=== PATIENT | female | born 1945 | race Caucasian/White ===

== ENCOUNTER → 2017-12-28 07:34 | Outpatient (CLI) | payer MEDICARE, OTHER, SELFPAY ==
--- NOTE | 2017-12-28 07:37 | BI_ITS ---
MAMMOGRAPHY - BILATERAL DIAGNOSTIC REASON FOR EXAM: Female, 72 years old. Palpable abnormality in the deep mid medial portion of the left breast. PERTINENT HISTORY: Sisters with breast cancer. TECHNIQUE: Digital bilateral breast kaylin (3D mammographic acquisition) in the CC and MLO projections. 2-D mediolateral oblique (MLO) and craniocaudad (CC) views of both breasts were obtained. CAD: Full Field Digital Mammography with Computer Added Detection was performed. COMPARISON: Comparison is made with prior study dated March 17, 2014. FINDINGS: Breast Composition: The breasts are heterogeneously dense, which may obscure small masses. There are no dominant masses or suspicious calcifications. No other significant abnormalities are identified. There has been no significant change since the prior study. BI/DIAG MAMM W/CAD, BILAT IMPRESSION: Stable bilateral diagnostic mammogram. With the patient's history of a palpable abnormality in the left breast, correlation with ultrasound is recommended. ASSESSMENT CATEGORY: BIRADS Category 0: Incomplete. Need additional imaging evaluation. A letter regarding these results will be sent to the patient by the facility within 30 days. Approximately 10% of breast cancers are not detected by mammography. A normal mammogram should not delay biopsy of a clinically suspicious abnormality. Electronically Signed: Damir Contreras MD at 9:25 EDT Tel [phone], Service support ,
--- NOTE | 2017-12-28 07:38 | US_ITS ---
STUDY: ULTRASOUND BREAST - LEFT REASON FOR EXAM: Female, 72 years old. Palpable lump left breast. TECHNIQUE: Axial and longitudinal images of the LEFT breast were performed with a high resolution ultrasound transducer. COMPARISON: Comparison is made with prior mammogram done earlier today. FINDINGS: LEFT Breast: The upper medial portion of the left breast was examined by ultrasound. There is homogeneous fiber glandular tissue. No solid or cystic mass lesion is seen. US/Breast Limited Unilateral IMPRESSION: Unremarkable sonographic examination of the upper inner quadrant of the left breast. ASSESSMENT CATEGORY: BIRADS Category 1: Negative. A letter regarding these results will be sent to the patient by the facility within 30 days. Electronically Signed: Damir Contreras MD at 9:30 EDT Tel [phone], Service support ,
== END ==
PROVIDERS: Family Provider Internal Medicine; PCP Internal Medicine; Visit Provider Internal Medicine
DX: N63.22 Unspecified lump in the left breast, upper inner quadrant (principal)
CPT/HCPCS: 76642; 77062; 77066; G0279

== ENCOUNTER → 2019-03-22 07:06 | Outpatient (CLI) | payer MEDICARE, OTHER, SELFPAY ==
--- NOTE | 2019-03-22 06:55 | BI_ITS ---
MAMMOGRAPHY - BILATERAL SCREENING REASON FOR EXAM: Female, 73 years old. Routine annual screening examination. PERTINENT HISTORY: Sisters with breast cancer. TECHNIQUE: Digital bilateral breast harinder (3D mammographic acquisition) in the CC and MLO projections. 2-D mediolateral oblique (MLO) and craniocaudad (CC) views of both breasts were obtained. CAD: Full Field Digital Mammography with Computer Added Detection was performed. COMPARISON: Comparison is made with prior study dated December 28, 2017 and March 17, 2014. FINDINGS: Breast Composition: The breasts are heterogeneously dense, which may obscure small masses. There are no dominant masses or suspicious calcifications. There is a 9.4 mm x 5.5 mm well-defined nodule in the lateral retroareolar region of the left breast. This most likely represents a small lymph node. Correlation with ultrasound is recommended. No other significant abnormalities are identified. BI/SCREEN MAMM (CAD) W/HARINDER BILAT IMPRESSION: 9.4 mm x 5.5 mm well-defined nodule in the lateral retroareolar region of left breast as described. Correlation with ultrasound is recommended. ASSESSMENT CATEGORY: BIRADS Category 0: Incomplete. Need additional imaging evaluation. A letter regarding these results will be sent to the patient by the facility within 30 days. Approximately 10% of breast cancers are not detected by mammography. A normal mammogram should not delay biopsy of a clinically suspicious abnormality. [id number] Electronically Signed: Damir Contreras, at 9:16 EDT , Service support ,
== END ==
PROVIDERS: Family Provider Internal Medicine; PCP Internal Medicine; Referring Provider Internal Medicine; Visit Provider Internal Medicine
DX: Z12.31 Encounter for screening mammogram for malignant neoplasm of breast (principal); Z80.3 Family history of malignant neoplasm of breast
CPT/HCPCS: 77063; 77067

== ENCOUNTER → 2019-04-12 08:01 | Outpatient (CLI) | payer MEDICARE, OTHER, SELFPAY ==
--- NOTE | 2019-04-12 08:05 | US_ITS ---
STUDY: ULTRASOUND BREAST - LEFT REASON FOR EXAM: Female, 73 years old. Abnormal screening mammogram. TECHNIQUE: Axial and longitudinal images of the LEFT breast were performed with a high resolution ultrasound transducer. COMPARISON: Comparison is made with prior mammogram dated March 22, 2019 and prior ultrasound the left breast dated December 28, 2017. FINDINGS: LEFT Breast: The mammographic abnormality corresponds to an 8 mm x 11 mm x 4 mm hypoechoic nodule with peripheral rim of increased echotexture suggestive of a possible fat. A biopsy is recommended for further evaluation. This is at the 3:00 position breast at 2 cm from the nipple. There is also evidence of dilated retroareolar ducts. US/Breast Limited Unilateral IMPRESSION: Heterogeneous nodular density measuring 8 mm x 11 mm x 4 mm at the 3:00 position of the breast at 2 cm from the nipple. A biopsy recommended for further evaluation. ASSESSMENT CATEGORY: BIRADS Category 4: Suspicious - Biopsy Should Be Considered. A letter regarding these results will be sent to the patient by the facility within 30 days. Electronically Signed: Damir Contreras, at 11:20 EDT , Service support ,
== END ==
PROVIDERS: Family Provider Internal Medicine; PCP Internal Medicine; Referring Provider Internal Medicine; Visit Provider Internal Medicine
DX: R92.2 Inconclusive mammogram (principal)
CPT/HCPCS: 76642

== ENCOUNTER → 2019-04-25 09:51 | Outpatient (CLI) | payer MEDICARE, OTHER, SELFPAY ==
[2019-04-25 07:44] VITALS: BMI 27.5
--- NOTE | 2019-04-25 07:50 | BRBX_PTH ---
PATIENT: FREDDIE STARK LOC: [facility] U#:[id number] AGE/SX: 80/F ROOM: RE04/25/[address]: Dr. Timothy Garcia MD : 1945 BED: DIS: SPEC #: [id number] RECD: 04/25/19 09:28 STATUS: MAR OMAR #: [id number] JEAN MARIE: 04/25/19 07:[address]: Timothy Garcia DEPT: SURGICAL PATHOLOGY RECD BY: Raoul Richards ENTERED: 04/25/19 10:44 SP TYPE: BREAST BX OTHR DR: Dr. Netta Araujo MD Tissues: Left breast, NOS Procedures: Surgery Specimen Level IV HEADER OPERATION: Left breast biopsy PRE-OP DIAGNOSIS: Left breast abnormal ultrasound TISSUE SUBMITTED: Left breast tissue FIXATION TIME: 11.5 hours MICROSCOPIC DIAGNOSIS Left breast tissue, core biopsy: Fragments of benign breast tissue with focal dense fibrosis and lobular involution. Negative for atypia or malignancy. See comment. CODY:jericho 04/26/19 COMMENT Correlation with clinical, radiologic findings and appropriate follow up are necessary. MICROSCOPIC DESCRIPTION Slides are reviewed. GROSS DESCRIPTION Received in fixative is one container labeled with the patient's name and designated left breast. The specimen consists of multiple fragments of phipps-yellow fibroadipose tissue that in aggregate measure 1.5 x 0.3 x 0.1 cm. The entire specimen is submitted in one cassette. / CODY:jericho 04/25/19 TC:5 CPT: 56291
== END ==
PROVIDERS: Family Provider Internal Medicine; PCP Internal Medicine; Referring Provider Surgery; Visit Provider Surgery
DX: N60.32 Fibrosclerosis of left breast (principal)
CPT/HCPCS: 88305

== ENCOUNTER → 2019-09-13 07:36 | Outpatient (CLI) | payer MEDICARE, OTHER, SELFPAY ==
[2019-04-25 07:44] VITALS: BMI 27.5
--- NOTE | 2019-09-13 07:45 | BI_ITS ---
MAMMOGRAPHY - UNILATERAL DIAGNOSTIC: LEFT BREAST REASON FOR EXAM: Female, 74 years old. Six-month follow-up of an ultrasound guided biopsy of the left breast. PERTINENT HISTORY: Sisters with breast cancer. TECHNIQUE: Digital unilateral breast kaylin (3D mammographic acquisition) in the CC and MLO projections. 2-D mediolateral oblique (MLO) and craniocaudad (CC) views of both breasts were obtained. CAD: Full Field Digital Mammography with Computer Added Detection was performed. COMPARISON: Comparison is made with prior examination dated March 22, 2019. FINDINGS: Breast Composition: The breasts are heterogeneously dense, which may obscure small masses. There are no dominant masses or suspicious calcifications. A tissue clip marker is seen within a 9 mm well-defined nodule in the lateral retroareolar region of the left No other significant abnormalities are identified. There has been no significant change since the prior study. BI/DIAG MAMM W/CAD, UNILAT IMPRESSION: Stable unilateral diagnostic mammogram. One year follow-up mammogram recommended. (A) ASSESSMENT CATEGORY: BIRADS Category 2: Benign. A letter regarding these results will be sent to the patient by the facility within 30 days. Approximately 10% of breast cancers are not detected by mammography. A normal mammogram should not delay biopsy of a clinically suspicious abnormality. Electronically Signed: Damir Contreras, at 10:09 EST , Service support ,
== END ==
PROVIDERS: PCP Internal Medicine; Referring Provider Surgery; Visit Provider Surgery
DX: R92.8 Other abnormal and inconclusive findings on diagnostic imaging of breast (principal)
CPT/HCPCS: 77061; 77065; G0279

== ENCOUNTER → 2023-08-07 | Outpatient (CLI) | payer MEDICARE, OTHER, SELFPAY ==
--- NOTE | 2023-08-07 07:40 | BI_ITS ---
MAMMOGRAPHY - BILATERAL SCREENING REASON FOR EXAM: Female, 78 years old. Routine annual screening examination. PERTINENT HISTORY: Sisters with breast cancer. History of remote right excisional breast biopsy and left ultrasound-guided breast biopsy. TECHNIQUE: Digital bilateral breast harinder (3D mammographic acquisition) in the CC and MLO projections. 2-D mediolateral oblique (MLO) and craniocaudad (CC) views of both breasts were obtained. CAD: Full Field Digital Mammography with Computer Added Detection was performed. COMPARISON: Comparison is made with prior study dated March 22, 2019. FINDINGS: Breast Composition: The breasts are heterogeneously dense, which may obscure small masses. New microcalcifications are seen in the upper outer quadrant of the left breast. Several clusters are seen. Questionable 1.6 cm x 1 cm nodule in the upper lateral deep portion of the left breast. Biopsy recommended. No other significant abnormalities are identified. BI/SCRN MAMM (CAD)W/HARINDER BILAT IMPRESSION: New clusters of microcalcifications in the upper lateral aspect of the left breast with questionable 1.6 cm x 1 cm nodule as described. Biopsy recommended. ASSESSMENT CATEGORY: BIRADS Category 5: Highly Suggestive of Malignancy - Appropriate Action Should Be Taken. A letter regarding these results will be sent to the patient by the facility within 30 days. Approximately 10% of breast cancers are not detected by mammography. A normal mammogram should not delay biopsy of a clinically suspicious abnormality. [id number] Electronically Signed: Damir Contreras MD at 9:04 EST ,
--- OUTSIDE RECORDS SUMMARY | 2023-08-07 07:58 | XMS RPT_ITS | CCD ---
Author Name Unknown Address [address] [place] [address] Organization [facility] Care Team Providers Care Multiskill Operator Name Role Phone Netta Araujo Unavailable TOPHER Paniagua Unavailable Unavailable Unavailable Unavailable Timothy Garcia Unavailable Netta Araujo MD Unavailable Timothy Garcia MD Unavailable TOPHER Paniagua LPN Unavailable Unavailable Unavailable Unavailable Netta Araujo MD Unavailable Gary Valera Unavailable Medications Completed/Discontinued Medications Medication Drug Class(es) Dates Sig (Normalized) Sig (Original) amoxicillin 875 mg / clavulanate 125 mg oral tablet (20 sources) Penicillin-class Antibacterial Start: 11-01-2007 End: 02-13-2008 take 1 tablet by mouth twice daily AUGMENTIN, 875-125MG (Oral Tablet) 1 Tablet bid for 14 days Quantity: 28 {Tablet} Refills: 0 Ordered: 01-Nov-2007 Paradisepedro Manuela Start : 01-Nov-2007 End : 13-Feb-2008 Inactive aspirin 81 mg chewable tablet (20 sources) Platelet Aggregation Inhibitor, Nonsteroidal Anti-inflammatory Drug Start: 11-02-2017 End: 04-14-2022 take 1 tablet by mouth in the morning Aspirin 81 81 MG Oral Tablet Chewable 1 (one) Tablet Tablet in am for 0 days Quantity: 30 {Tablet} Refills: 0 Ordered: 14-Apr-2022 Lucina Harris LPN Start : 02-Nov-2017 End : 14-Apr-2022 Inactive cholecalciferol 0.05 mg chewable tablet (20 sources) Vitamin D Start: 06-09-2016 take 1 tablet by mouth in the morning Vitamin D3 2000 UNIT Oral Tablet Chewable 1 (one) Tablet Chewable Tablet Chewable in am for 0 days Quantity: 30 {Tablet} Refills: 0 Ordered: 16-Feb-2017 Lindsey Lovett LPN Start : 09-Jun-2016 Active Comments: will get in her vitamins get. Problems Active Problems Problem Classification Problem Date Documented Da te Episodic/Chronic Blindness and vision defects (14 sources) Eye / vision finding; Translations: [Change in vision] 04-14-2022 Episodic Past or Other Problems Problem Classification Problem Date Documented Date Episodic/Chronic Coronary atherosclerosis and other heart disease (20 sources) Coronary atherosclerosis and other heart disease Nonmalignant breast conditions (9 sources) Breast signs and symptoms; Translations: [Other signs and symptoms in breast] Resolved: 05-18-2012 05-29-2015 Results Test Name Value Interpretation Reference Range Facil ity Vital Signs Date Time Vital Sign Value Performing Clinician Facility 04-14-2022 07:43-0400 Body height 161.29 cm Lucina Harris LPN [facility] Work Phone: 04-14-2022 07:43-0400 Body mass index (BMI) [Ratio] 27.56 kg/m2 Lucina Harris LPN [facility] Work Phone: 04-14-2022 07:43-0400 Body surface area Derived from formula 1.76 m2 Lucina Harris LPN [facility] Work Phone: 04-14-2022 07:43-0400 Body temperature 97.4 [degF] Lucina Harris LPN [facility] Work Phone: 04-14-2022 07:43-0400 Body weight 71.69 kg Lucina Harris LPN [facility]; [facility] Work Phone: 04-14-2022 07:43-0400 Diastolic blood pressure 74 mm[Hg] [facility] Work Phone: Encounters Encounter Date Encounter Type Care Provider Facility Start: 04-14-2022 End: 04-14-2022 Patient encounter procedure Netta Araujo MD Work Phone: [facility] Start: 04-14-2022 End: 04-14-2022 Patient encounter status Netta Araujo MD Work Phone: [facility] Work Phone: Procedures Date Procedure Procedure Detail Performing Clinician Start: 09-13-2019 End: 09-13-2019 DIAG MAMM W/CAD, UNILAT Comments: See Note; NOTES: [facility] Imaging Services [address] [place] [address] DIAG MAMM W/CAD, UNILAT MR#: [id number] Acct: [id number] Name: MANUELA STARK Rep #: [id number] : 1945 F 74 From: Damir Contreras MD PCP: Netta Araujo MD Status: REG CLI Study: DIAG MAMM W/CAD, UNILAT Date of Exam: 09/13/19 Exam# [id number] Ordering Dr: Timothy Garcia MD MAMMOGRAPHY - UNILATERAL DIAGNOSTIC: LEFT BREAST REASON FOR EXAM: Female, 74 years old. Six-month follow-up of an ultrasound guided biopsy of the left breast. PERTINENT HISTORY: Sisters with breast cancer. TECHNIQUE: Digital unilateral breast harinder (3D mammographic acquisition) in the CC and MLO projections. 2-D mediolateral oblique (MLO) and craniocaudad (CC) views of both breasts were obtained. CAD: Full Field Digital Mammography with Computer Added Detection was performed. COMPARISON: Comparison is made with prior examination dated March 22, 2019. FINDINGS: Breast Composition: The breasts are heterogeneously dense, which may obscure small masses. There are no dominant masses or suspicious calcifications. A tissue clip marker is seen within a 9 mm well-defined nodule in the lateral retroareolar region of the left No other significant abnormalities are identified. There has been no significant change since the prior study. BI/DIAG MAMM W/CAD, UNILAT IMPRESSION: Stable unilateral diagnostic mammogram. One year follow-up mammogram recommended. (A) ASSESSMENT CATEGORY: BIRADS Category 2: Benign. A letter regarding these results will be sent to the patient by the facility within 30 days. Approximately 10% of breast cancers are not detected by mammography. A normal mammogram should not delay biopsy of a clinically suspicious abnormality. Electronically Signed: Damir Ben, at 10:09 EST , Service support , CC: eNtta Araujo MD; Timothy Garcia MD Mushroom Laborer: Signed Netta Araujo MD Work Phone: Start: 04-25-2019 End: 04-25-2019 Surgery Visit Report Comments: See Note; NOTES: [facility] [address] [place] [address]. [address] [place] [address] OFFICE VISIT Date of Service: 04/25/19 MR#: [id number] Acct: [id number] Name: MANUELA STARK Rep #: [id number] : 1945 Provider: Timothy Garcia MD Age/Sex: 73/F Location: [facility] Status: Signed Intake Vital Signs04/25/19 Height 5 ft 3.5 in 04/25/19 Weight: 158 lb 1 oz 04/25/19 Body Mass Index (BMI) 27.5 04/25/19 Blood Pressure 154/68 H Intake Visit Reasons: Abnormal Mammo Of Left Breast US 04/12 [facility] Chief Complaint: abn breast US left Regional [employer] Required: No Is patient in pain?: No Allergies No Known Allergies Allergy (Verified 04/25/19 07:45) Medications cholecalciferol (vitamin D3) 5,000 unit capsule 5,000 unit PO DAILY 04/25/19 [History Confirmed 04/25/19] losartan 100 mg tablet PO #90 tab 04/25/19 [History Confirmed 04/25/19] multivitamin,px-rydb-zooc rals tablet 1 tab PO DAILY 04/25/19 [History Confirmed 04/25/19] Is last menstrual period known: No Post menopausal: Yes Patient : No [facility] Medical History (Updated 04/25/19 @ 08:12 by Timothy Garcia MD) Abnormal mammogram of left breast (Acute) Hemorrhoid (Acute) HTN (hypertension) (Chronic) Surgical History (Updated 04/25/19 @ 07:42 by Karuna Winters) History of colonoscopy (Acute) History of lumpectomy of right breast (Acute) Family History (Updated 04/25/19 @ 07:44 by Karuna Winters) Brother Diabetes Colon cancer Sister Breast cancer Cancer uterine Sister Breast cancer Mother CVA (cerebral vascular accident) Father Heart disease Social History (Updated 04/25/19 @ 14:51 by Timothy Garcia MD) Smoking Status: Never smoker HPI HPI HPI: MANUELA STARK, is a 73 F who presents to the office today for surgical consultation regarding an abnormal left breast mammogram and ultrasound. The patient is kindly referred by Dr. Netta Araujo and a written compromise surgical consult recommendations will be returned to her. 73-year-old female. G0. She has 2 sisters had breast cancer. She did have a previous hysterectomy and she was on estrogen replacement therapy for 5 years. She has had a very remote excisional right breast biopsy. She has had a previous breast cyst aspiration. She has not had any personal history of breast cancer. There is no nipple discharge or bleeding. She notes that her breasts are rather dense on exam particular the left. She has not had any change in her self breast exam. Her general health has remained good. 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 [facility] Imaging Services [address] [place] [address] SCREEN MAMM (CAD) W/HARINDER BILAT MR#: [id number]:[id number] Name: MANUELA STARK [facility] #:[id number] : 1945 73 From: Damir Contreras MD PCP:Netta Araujo MD Status:REG CLI Study:SCREEN MAMM (CAD) W/HARINDER BILAT Date of Exam:03/22/19 Exam#[id number] Ordering Dr: Netta Araujo MD MAMMOGRAPHY - BILATERAL SCREENING REASON FOR EXAM: Female, 73 years old. Routine annual screening examination. PERTINENT HISTORY: Sisters with breast cancer. TECHNIQUE: Digital bilateral breast harinder (3D mammographic acquisition) in the CC and MLO projections. 2-D mediolateral oblique (MLO) and craniocaudad (CC) views of both breasts were obtained. CAD: Full Field Digital Mammography with Computer Added Detection was performed. COMPARISON: Comparison is made with prior study dated December 28, 2017 and March 17, 2014. FINDINGS: Breast Composition: The breasts are heterogeneously dense, which may obscure small masses. There are no dominant masses or suspicious calcifications. There is a 9.4 mm x 5.5 mm well-defined nodule in the lateral retroareolar region of the left breast. This most likely represents a small lymph node. Correlation with ultrasound is recommended. No other significant abnormalities are identified. BI/SCREEN MAMM (CAD) W/HARINDER BILAT IMPRESSION: 9.4 mm x 5.5 mm well-defined nodule in the lateral retroareolar region of left breast as described. Correlation with ultrasound is recommended. ASSESSMENT CATEGORY: BIRADS Category 0: Incomplete. Need additional imaging evaluation. A letter regarding these results will be sent to the patient by the facility within 30 days. Approximately 10% of breast cancers are not detected by mammography. A normal mammogram should not delay biopsy of a clinically suspicious abnormality. [id number] Electronically Signed: Damir Contreras, at 9:16 EDT , Service support , [facility] Imaging Services [address] [place] [address] Breast Limited Unilateral MR#: [id number] Name: MANUELA STARK [facility] #:[id number] : 1945 73 From: Damir Contreras MD PCP:Netta Araujo MD Status:REG CLI Study:Breast Limited Unilateral Date of Exam:04/12/19 Exam#[id number] Ordering Dr: Netta Araujo MD STUDY: ULTRASOUND BREAST - LEFT REASON FOR EXAM: Female, 73 years old. Abnormal screening mammogram. TECHNIQUE: Axial and longitudinal images of the LEFT breast were performed with a high resolution ultrasound transducer. COMPARISON: Comparison is made with prior mammogram dated March 22, 2019 and prior ultrasound the left breast dated December 28, 2017. FINDINGS: LEFT Breast: The mammographic abnormality corresponds to an 8 mm x 11 mm x 4 mm hypoechoic nodule with peripheral rim of increased echotexture suggestive of a possible fat. A biopsy is recommended for further evaluation. This is at the 3:00 position breast at 2 cm from the nipple. There is also evidence of dilated retroareolar ducts. US/Breast Limited Unilateral IMPRESSION: Heterogeneous nodular density measuring 8 mm x 11 mm x 4 mm at the 3:00 position of the breast at 2 cm from the nipple. A biopsy recommended for further evaluation. ASSESSMENT CATEGORY: BIRADS Category 4: Suspicious - Biopsy Should Be Considered. A letter regarding these results will be sent to the patient by the facility within 30 days. Electronically Signed: Damir Contreras, at 11:20 EDT , Service support , HPI HPI HPI: MANUELA STARK, is a 73 F who presents to the office today for ROS General General: Yes weight change; no appetite, fatigue, colon cancer, breast cancer or weakness HEENT HEENT: No difficulty swallowing, eye injury, eye surgery, swollen glands or hoarseness Endo Endocrine: No thyroid disease, diabetes mellitus, thyroid cancer, Hair loss, heat intolerance or cold intolerance Cardio Cardiovascular: Yes high blood pressure; no murmur, pacemaker, heart disease, atrial fibrillation, heart attack, heart stent, palpitations, shortness of breat with exertion or chest pain Resp Respiratory: No shortness of breath, No sleep apnea, No cough, No COPD, No asthma, No emphysema, No wheezing Gastro Gastrointestinal: No abdominal pain, No nausea or vomiting, No diarrhea, No constipation, No blood in stool, No acid reflux, Yes hemorrhoids, No ulcers, No gallbladder problem, No black,tarry stools Bobby Hematologic: No blood thinners, No blood disorders, No bleeding, No anemia, No blood clots Neuro Neurologic: No weakness Exam Chest Other: Right breast: No focal mass, no nipple discharge, no axillary or clavicular adenopathy Left breast: Diffuse rubbery fibrous change upper outer quadrant left breast 2 o'clock position mobile, nontender, no distortion. No retraction. No axillary or clavicular adenopathy Resp Effort AND Inspection: normal respiratory effort Auscultation: clear to auscultation bilaterally Cardio Heart Sounds: no murmurs Office Procedures Biopsy Provider Documentation Ultrasound-guided needle core biopsy left breast 3:00 lesion Timeout and informed consent was obtained. 73-year-old female was taken to this procedure room. She is placed in a modified right lateral decubitus position. The outer left breast was sterilely prepped draped in routine fashion with Betadine. Under ultrasound guidance the lesion in question seen on preintervention imaging was identified. 1% lidocaine mixed 50-50 with 0.5% Marcaine was used as a local anesthetic. A total of 10 cc was used. A small stab incision was created. A 14-gauge Monopty needle was advanced to prefire depth. Pre-and post fire films were obtained. A total of 5 cores were obtained. A marking clip was left in position. Pressure was held for hemostasis. Steri-Strip Telfa OpSite dressing applied. The specimens were immediately transported to formalin. She was given activity wound care instructions. The area seemed to diminish slightly in size subsequent to the biopsies. She will be notified of pathology results as they become available. My initial suspicion is of a lower risk lesion. Timothy Garcia M.D., F.A.C.S. Alert Darline Yes Biopsy Breast Biopsy: 70822 US Guidance Procedure Time Out Time Out Informed consent given: Yes Consent signed: Yes Time out checklist: patient, procedure, site marked/identified, positioning of patient, supplies available, allergies confirmed, team agrees on procedure Time out staff in room: Yes Time out verified: Yes Time out date: 04/25/19 Time out time: 07:53 Assessment AND Plan Problems 1. Abnormal mammogram of left breast R92.8 Plan Abnormal left breast mammogram. Successful ultrasound-guided needle core biopsy left breast 3 o'clock position. Final pathology pending. I appreciate the opportunity of assisting with her surgical care. CC: Dr. Netta Garcia M.D., F.A.C.S. Orders Orders: Coding Level of Care Code Attention Darline Diagnoses Abnormal mammogram of left breast R92.8 Additional Codes Biopsy - Breast Biopsy: 08454 US Guidance (64806) 04/25/19 1451 <Electronically signed by Timothy Garcia MD> Date Timothy Garcia MD Cosigner Signature: Date (if applicable) CC: Netta Araujo MD Work Phone: Start: 04-12-2019 End: 04-12-2019 Breast Limited Unilateral Comments: See Note; NOTES: [facility] Imaging Services [address] [place] [address] Breast Limited Unilateral MR#: [id number] Acct: [id number] Name: MANUELA STARK Rep #: [id number] : 1945 F 73 From: Damir Contreras MD PCP: Netta Araujo MD Status: REG CLI Study: Breast Limited Unilateral Date of Exam: 04/12/19 Exam# [id number] Ordering Dr: Netta Araujo MD STUDY: ULTRASOUND BREAST - LEFT REASON FOR EXAM: Female, 73 years old. Abnormal screening mammogram. TECHNIQUE: Axial and longitudinal images of the LEFT breast were performed with a high resolution ultrasound transducer. COMPARISON: Comparison is made with prior mammogram dated March 22, 2019 and prior ultrasound the left breast dated December 28, 2017. FINDINGS: LEFT Breast: The mammographic abnormality corresponds to an 8 mm x 11 mm x 4 mm hypoechoic nodule with peripheral rim of increased echotexture suggestive of a possible fat. A biopsy is recommended for further evaluation. This is at the 3:00 position breast at 2 cm from the nipple. There is also evidence of dilated retroareolar ducts. US/Breast Limited Unilateral IMPRESSION: Heterogeneous nodular density measuring 8 mm x 11 mm x 4 mm at the 3:00 position of the breast at 2 cm from the nipple. A biopsy recommended for further evaluation. ASSESSMENT CATEGORY: BIRADS Category 4: Suspicious - Biopsy Should Be Considered. A letter regarding these results will be sent to the patient by the facility within 30 days. Electronically Signed: Damir Contreras, at 11:20 EDT , Service support , CC: Netta Araujo MD Mushroom Laborer: Signed Netta Araujo Work Phone: Start: 03-22-2019 End: 03-22-2019 SCREEN MAMM (CAD) W/HARINDER BILAT Comments: See Note; NOTES: [facility] Imaging Services [address] [place] [address] SCREEN MAMM (CAD) W/HARINDER BILAT MR#: [id number] Acct: [id number] Name: MANUELA STARK Rep #: [id number] : 1945 F 73 From: Damir Contreras MD PCP: Netta Araujo MD Status: REG CLI Study: SCREEN MAMM (CAD) W/HARINDER BILAT Date of Exam: 03/22/19 Exam# [id number] Ordering Dr: Netta Araujo MD MAMMOGRAPHY - BILATERAL SCREENING REASON FOR EXAM: Female, 73 years old. Routine annual screening examination. PERTINENT HISTORY: Sisters with breast cancer. TECHNIQUE: Digital bilateral breast harinder (3D mammographic acquisition) in the CC and MLO projections. 2-D mediolateral oblique (MLO) and craniocaudad (CC) views of both breasts were obtained. CAD: Full Field Digital Mammography with Computer Added Detection was performed. COMPARISON: Comparison is made with prior study dated December 28, 2017 and March 17, 2014. FINDINGS: Breast Composition: The breasts are heterogeneously dense, which may obscure small masses. There are no dominant masses or suspicious calcifications. There is a 9.4 mm x 5.5 mm well-defined nodule in the lateral retroareolar region of the left breast. This most likely represents a small lymph node. Correlation with ultrasound is recommended. No other significant abnormalities are identified. BI/SCREEN MAMM (CAD) W/HARINDER BILAT IMPRESSION: 9.4 mm x 5.5 mm well-defined nodule in the lateral retroareolar region of left breast as described. Correlation with ultrasound is recommended. ASSESSMENT CATEGORY: BIRADS Category 0: Incomplete. Need additional imaging evaluation. A letter regarding these results will be sent to the patient by the facility within 30 days. Approximately 10% of breast cancers are not detected by mammography. A normal mammogram should not delay biopsy of a clinically suspicious abnormality. [id number] Electronically Signed: Damir Contreras, at 9:16 EDT , Service support , CC: Netta Araujo MD Mushroom Laborer: Signed Netta Araujo Work Phone: Start: 12-28-2017 End: 12-28-2017 Breast Limited Unilateral Comments: See Note; NOTES: [facility] Imaging Services [address] [place] [address] Breast Limited Unilateral MR#: [id number] Acct: [id number] Name: MANUELA STARK Rep #: [id number] : 1945 F 72 From: Damir Contreras MD PCP: Netta Araujo MD Status: REG CLI Study: Breast Limited Unilateral Date of Exam: 12/28/17 Exam# [id number] Ordering Dr: Netta Araujo MD STUDY: ULTRASOUND BREAST - LEFT REASON FOR EXAM: Female, 72 years old. Palpable lump left breast. TECHNIQUE: Axial and longitudinal images of the LEFT breast were performed with a high resolution ultrasound transducer. COMPARISON: Comparison is made with prior mammogram done earlier today. FINDINGS: LEFT Breast: The upper medial portion of the left breast was examined by ultrasound. There is homogeneous fiber glandular tissue. No solid or cystic mass lesion is seen. US/Breast Limited Unilateral IMPRESSION: Unremarkable sonographic examination of the upper inner quadrant of the left breast. ASSESSMENT CATEGORY: BIRADS Category 1: Negative. A letter regarding these results will be sent to the patient by the facility within 30 days. Electronically Signed: Damir Contreras MD at 9:30 EDT Tel [phone], Service support , CC: Netta Araujo MD Mushroom Laborer: Signed Netta Araujo Work Phone: Start: 12-28-2017 End: 12-28-2017 DIAG MAMM W/CAD, BILAT Comments: See Note; NOTES: [facility] Imaging Services [address] [place] [address] DIAG MAMM W/CAD, BILAT MR#: [id number] Acct: [id number] Name: MANUELA STARK Rep #: [id number] : 1945 F 72 From: Damir Contreras MD PCP: Netta Araujo MD Status: REG CLI Study: DIAG MAMM W/CAD, BILAT Date of Exam: 12/28/17 Exam# [id number] Ordering Dr: Netta Araujo MD MAMMOGRAPHY - BILATERAL DIAGNOSTIC REASON FOR EXAM: Female, 72 years old. Palpable abnormality in the deep mid medial portion of the left breast. PERTINENT HISTORY: Sisters with breast cancer. TECHNIQUE: Digital bilateral breast harinder (3D mammographic acquisition) in the CC and MLO projections. 2-D mediolateral oblique (MLO) and craniocaudad (CC) views of both breasts were obtained. CAD: Full Field Digital Mammography with Computer Added Detection was performed. COMPARISON: Comparison is made with prior study dated March 17, 2014. FINDINGS: Breast Composition: The breasts are heterogeneously dense, which may obscure small masses. There are no dominant masses or suspicious calcifications. No other significant abnormalities are identified. There has been no significant change since the prior study. BI/DIAG MAMM W/CAD, BILAT IMPRESSION: Stable bilateral diagnostic mammogram. With the patient's history of a palpable abnormality in the left breast, correlation with ultrasound is recommended. ASSESSMENT CATEGORY: BIRADS Category 0: Incomplete. Need additional imaging evaluation. A letter regarding these results will be sent to the patient by the facility within 30 days. Approximately 10% of breast cancers are not detected by mammography. A normal mammogram should not delay biopsy of a clinically suspicious abnormality. Electronically Signed: Damir Contreras MD at 9:25 EDT Tel [phone], Service support , CC: Netta Araujo MD Mushroom Laborer: Signed Netta Araujo Work Phone: Start: 06-03-2017 End: 06-03-2017 Carotid Duplex Ultrasound Comments: See Note; NOTES: [facility] Cardiovascular Services [address] [place] [address] Carotid Duplex Ultrasound 06/02/17 0947 MR#: [id number] Acct: [id number] Name: MANUELA STARK Rep #: [id number] : 1945 71 From: Michael Goodman MD Attending Dr: Netta Araujo MD Status: REG CLI Ordering Dr: Netta Araujo MD Date: 06/02/17 Location: [facility] Sex: F C Admitted: Reason For Study: ATHEROSCLEROSIS Rt. Velocities/BP Lt. Velocities/BP Prox CCA 129/20 cm/sec. Prox CCA 130/31 cm/sec. Mid CCA 128/25 cm/sec. Mid CCA 102/33 cm/sec. Dist CCA 83/20 cm/sec. Dist CCA 91/28 cm/sec. Prox ICA 80/20 cm/sec. Prox ICA 86/34 cm/sec. Mid ICA 94/33 cm/sec. Mid ICA 99/41 cm/sec. Dist ICA 86/25 cm/sec. Dist ICA 98/37 cm/sec. Rt. ICA/CCA = .73. Lt. ICA/CCA = .97. Prox ECA 115/15 cm/sec. Prox ECA 133/19 cm/sec. Rt. Vert. 76/15 cm/sec. Lt. Vert. 53/19 cm/sec. Right Extracranial There is intimal thickening but no significant atherosclerotic plaque noted in the right common carotid artery. There is homogeneous, smooth atherosclerotic plaque noted in the right internal carotid artery. There is homogeneous, smooth atherosclerotic plaque noted in the right external carotid artery. Antegrade flow is noted in the right vertebral artery. There is homogeneous, smooth atherosclerotic plaque noted in the right bulb. Left Extracranial There is homogeneous, smooth atherosclerotic plaque noted in the left common carotid artery. There is heterogeneous, irregular atherosclerotic plaque noted in the left internal carotid artery. There is homogeneous, smooth atherosclerotic plaque noted in the left external carotid artery. Antegrade flow is noted in the left vertebral artery. There is heterogeneous, irregular atherosclerotic plaque noted in the left bulb. Procedure Carotid Duplex 85173. Exam performed in department. Interpretation Summary Mild (<50%) stenosis right extracranial internal carotid. Mild (<50%) stenosis left extracranial internal carotid. Flow within the vertebral arteries is antegrade bilaterally. Ordering Physician: Netta Araujo Performed By: Jackie Babin, RDCS, RVT 06/03/171842 Date Michael Goodman MD CC: Netta Araujo MD Date Dictated: 06/02/17 0947 Date Transcribed: 06/03/171842 Mushroom Laborer: Signed Netta Araujo Work Phone: Start: 05-18-2017 End: 05-18-2017 Dexa Bone Density Study (HP) Comments: See Note; NOTES: [facility] Imaging Services [address] [place] [address] Dexa Bone Density Study () MR#: [id number] Acct: [id number] Name: MANUELA STARK Rep #: [id number] : 1945 F 71 From: Damir Contreras MD PCP: Netta Araujo MD Status: REG CLI Study: Dexa Bone Density Study () Date of Exam: 05/18/17 Exam# [id number] Ordering Dr: Netta Araujo MD STUDY: DUAL ENERGY X-RAY ABSORPTIOMETRY / DXA REASON FOR EXAM: Female, 71 years old. The patient is postmenopausal. Loss of height. TECHNIQUE: Bone Mineral Density (BMD) measurements of lumbar spine and bilateral hips were obtained. COMPARISON: None. FINDINGS: Lumbar Spine (L1-L4): g/cm2 (1.266) / T-score (0.5) / Z-score (2.2) Findings are suggestive of normal bone density with a low fracture risk. Increased thoracic kyphosis. Left Femur Total: g/cm2 (0.980) / T-score (-0.2) / Z-score (1.3) Left Femoral Neck: g/cm2 (0.955) / T-score (-0.6) / Z-score (1.2) Right Femur Total: g/cm2 (1.025) / T-score (0.1) / Z-score (1.7) Right Femoral Neck: g/cm2 (0.960) / T-score (-0.6) / Z-score (1.2) HPBD/Dexa Bone Density Study () IMPRESSION: The patient is considered normal as outlined below according to World Jacoby Organization (WHO) criteria with a low fracture risk. Reference Information: The T-score is the number of standard deviations above or below the standard which is normal for young adults at their peak bone mineral density. The World Health Organization (WHO) interprets the T-scores as follows: Above -1 Normal bone density Between -1 and -2.5 Osteopenia Equal to / or below -2.5 Osteoporosis As a practical clinical guideline, osteopenia may be graded as follows: Mild -1 through -1.5 Moderate -1.6 through -2.0 Severe -2.1 through -2.4 The Z-score is the number of standard deviations above or below age-matched controls. A Z-score of less than -1.5 would be considered abnormal. References: 1. NIH Osteoporosis and Related Bone Diseases http://www.osteo.org 2. International Society for Clinical Densitometry http://www.iscd.org 3. National Osteoporosis Foundation http://www.nof.org Electronically Signed: Damir Contreras MD at 9:18 EST Tel [phone], Service support , CC: Netta Araujo MD Mushroom Laborer: Signed Netta Araujo Work Phone: Start: 06-03-2016 End: 06-03-2016 Echocardiogram Complete Comments: See Note; NOTES: [facility] Cardiovascular Services [address] [place] [address] Echo Complete 06/03/16 1059 MR#: [id number] Acct: [id number] Name: MANUELA STARK Rep #: [id number] : 1945 70 From: Amadeo Vazquez MD Attending Dr: Netta Araujo MD Status: REG CLI Ordering Dr: Netta Araujo MD Date: 06/03/16 Location: [facility] Sex: F C Admitted: Reason For Study: ABN EKG Procedure This was a 2D Doppler, Color Flow transthoracic echocardiogram. The exam was of adequate technical quality. Exam performed in department. Left Ventricle Normal LV size. Left ventricular systolic function is normal. The estimated ejection fraction is 60 %. No regional wall motion abnormalities noted. Right Ventricle Normal RV size. Normal systolic function. Atria The left atrium is mildly enlarged. Normal right atrium. No doppler evidence for ASD. Mitral Valve There is no mitral annular calcification. Normal mitral valve. Mild (1+) mitral valve insufficiency. Tricuspid Valve Normal tricuspid valve. Trivial tricuspid valve insufficiency. Right ventricular systolic pressure estimated to be 23 mmHg. Aortic Valve Trisinus/trileaflet aortic valve. Mild diffuse aortic valve thickening. Mild (1+) aortic valve insufficiency. Pulmonic Valve The pulmonic valve is not well visualized. Great Vessels Normal sized aortic root. Pericardium/Pleural No pericardial effusion. MMode/2D Measurements & Calculations LVIDd: 4.8 cm IVSd: 1.0 cm LVOT diam: 2.0 cm LVIDs: 3.3 cm LVPWd: 1.00 cm LVOT area: 3.3 cm2 RVDd: 2.9 cm FS: 31.4 % Ao root diam: 2.5 cm LAV(MOD-bp): 58.1 ml LA A4 area: 20.7 cm2 LAV(MOD-bp) Indexed: 32.3 ml/m2 LAV(MOD-sp2): 50.7 ml LAV(MOD-sp4): 58.8 ml RA A4 area: 15.1 cm2 Time Measurements MV dec time: 0.19 sec Doppler Measurements & Calculations MV E max mehrdad: 62.6 cm/sec Lat Peak E' Mehrdad: 10.8 cm/sec Med Peak E' Mehrdad: 8.1 cm/sec MV A max mehrdad: 97.1 cm/sec E/E' lat: 5.8 E/E' med: 7.8 MV E/A: 0.64 MV P1/2t max mehrdad: 63.1 cm/sec Ao V2 max: 140.7 cm/sec AI max mehrdad: 402.8 cm/sec MV P1/2t: 55.2 msec Ao max P.9 mmHg AI max P.1 mmHg MV dec slope: 334.9 cm/sec2 DUNG(V,D): 2.9 cm2 AI dec slope: 362.0 cm/sec2 MVA(P1/2t): 4.0 cm2 AI P1/2t: 325.9 msec LV V1 max: 124.0 cm/sec PI end-d mehrdad: 60.7 cm/sec TR max mehrdad: 225.4 cm/sec LV V1 max P.2 mmHg TR max P.3 mmHg Interpretation Summary Left ventricular systolic function is normal. The estimated ejection fraction is 60 %. The left atrium is mildly enlarged. Mild (1+) mitral valve insufficiency. Trivial tricuspid valve insufficiency. Mild diffuse aortic valve thickening. Mild (1+) aortic valve insufficiency. Right ventricular systolic pressure estimated to be 23 mmHg. Ordering Physician: Netta Araujo Referring Physician: Netta Araujo M.D. Performed By: Melissa Fisher, CS 06/03/16 1219 Date Amadeo Vazquez MD CC: Netta Araujo MD Date Dictated: 06/03/16 1059 Date Transcribed: 06/03/16 121 Mushroom Laborer: Signed Netta Araujo Work Phone: Start: 03-17-2014 End: 03-17-2014 Bilat Scrn Digital & CAD Comments: See Note; NOTES: [facility] Imaging Services [address] [place] [address] Breast Imaging Report MR#: [id number] Acct: [id number] Name: MANUELA STARK Rep #: [id number] : 1945 F 68 From: Damir Contreras MD PCP: Netta Araujo MD Status: PRE CLI Exam# [id number] Ordering Dr: Netta Araujo MD MAMMOGRAPHY - BILATERAL SCREENING REASON FOR EXAM: Female, 68 years old. Routine annual screening examination. PERTINENT HISTORY: Sister with breast cancer. Prior right excisional biopsy. TECHNIQUE: Digital examination. Mediolateral oblique (MLO) and craniocaudad (CC) views of both breasts were obtained. CAD: CAD was performed on this study. COMPARISON: Comparison is made with prior examination dated September 14, 2006. FINDINGS: Breast Composition: There are scattered areas of fibroglandular density. There are no dominant masses or suspicious calcifications. No other significant abnormalities are identified. There has been no significant change since the prior study. IMPRESSION: Stable bilateral screening mammogram. Yearly follow-up recommended. (A) ASSESSMENT CATEGORY: BIRADS Category 2: Benign finding(s). A letter regarding these results will be sent to the patient by the facility within 30 days. Approximately 10% of breast cancers are not detected by mammography. A normal mammogram should not delay biopsy of a clinically suspicious abnormality. Electronically Signed: Damir Contreras MD at 8:07 EDT Tel [phone], Service support [phone], CC: Netta Araujo MD Mushroom Laborer: Signed Netta Araujo Work Phone: Lump In Breast TOPHER robert Plan of Treatment Date Care Activity Detail Author Start: 04-14-2022 Lactate dehydrogenase ldh LDH (LD) (LACTATE DEHYDROGENASE) (96931) [facility]; [facility] Work Phone: Start: 04-14-2022 Blood count reticulocyte automated RETICULOCYTE COUNT (61307) [facility]; [facility] Work Phone: Start: 04-14-2022 Iron binding capacity Iron Binding Capacity (TIBC) (86277) [facility]; [facility] Work Phone: Start: 04-14-2022 Assay of iron Iron (13391) [facility]; [facility] Work Phone: Start: 04-14-2022 Assay of ferritin Ferritin (63957) [facility]; [facility] Work Phone: Start: 04-14-2022 Organic acid 1 quantitative Methymalonic Acid, Serum (66815) [facility]; [facility] Work Phone: Start: 04-14-2022 Cyanocobalamin vitamin b-12 Vitamin B-12 (cyanocobalamin) (99542) [facility]; [facility] Work Phone: Start: 04-14-2022 Blood count complete automated CBC (Auto) (45143) [facility]; [facility] Work Phone: Start: 11-11-2020 Hepatitis c antibody HEPATITIS C ANTIBODY (96443) [facility]; [facility] Work Phone: Start: 11-11-2020 Assay of parathormone PARATHORMONE (09844) [facility] Work Phone: Start: 11-11-2020 Urine albumin quantitative MICROALBUMIN: CREATININE RATIO (22487) AND (33180) [facility]; [facility] Work Phone: Start: 11-11-2020 Urinalysis qual/semiquant except immunoassays URINALYSIS (75821) [facility]; [facility] Work Phone: Start: 11-11-2020 Blood count manual cell count each CBC WITH MANUAL DIFF (89052) [facility]; [facility] Work Phone: Start: 11-11-2020 Lipoprotein blood nik numbers & subclasses NMR Profile (39044) [facility]; [facility] Work Phone: Start: 11-11-2020 Comprehensive metabolic panel Metabolic Panel, Comprehensive (64650) [facility]; [facility] Work Phone: Start: 04-04-2019 Comprehensive metabolic panel METABOLIC PANEL, COMPREHENSIVE (89549) [facility] Work Phone: Start: 04-04-2019 Lipid panel LIPID PANEL (79056) [facility] Work Phone: Start: 11-16-2018 Hepatic function panel HEPATIC FUNCTION PANEL (97377) [facility] Work Phone: Start: 11-16-2018 Lipid panel LIPID PANEL (89416) [facility] Work Phone: Start: 10-16-2018 Urine albumin quantitative MICROALBUMIN: CREATININE RATIO (84543) AND (82165) [facility] Work Phone: Start: 10-16-2018 Comprehensive metabolic panel Metabolic Panel, Comprehensive (67117) [facility] Work Phone: Start: 10-16-2018 Urinalysis qual/semiquant except immunoassays URINALYSIS (65422) [facility] Work Phone: Start: 10-16-2018 Blood count manual cell count each CBC WITH MANUAL DIFF (56910) [facility] Work Phone: Start: 11-02-2017 Lipoprotein blood nik numbers & subclasses LIPOPROTEIN, BLD, BY NMR (19838) [facility]; [facility] Work Phone: Start: 11-02-2017 Protein mass conc LIPOPROTEIN, BLD, BY NMR (51071) [facility] Work Phone: Start: 11-02-2017 Comprehensive metabolic panel METABOLIC PANEL, COMPREHENSIVE (18300) [facility] Work Phone: Start: 02-16-2017 Procedure Education Eprescribed prescriptions (G8553) [facility] Work Phone: Start: 06-09-2016 Provider Instructions for Treatment [facility] Work Phone: Start: 08-20-2015 Procedure Education Eprescribed prescriptions (G8553) [facility] Work Phone: Start: 08-20-2015 Provider Instructions for Treatment [facility] Work Phone: Start: 08-13-2015 Assay of thyroid stimulating hormone tsh TSH (00310) [facility]; [facility] Work Phone: Start: 08-13-2015 Thyrotropin Qn TSH (07482) [facility] Work Phone: Start: 08-13-2015 Urine albumin quantitative MICROALBUMIN: CREATININE RATIO (26336) AND (54988) [facility] Work Phone: Start: 08-13-2015 Blood count manual cell count each CBC WITH MANUAL DIFF (15925) [facility] Work Phone: Start: 08-13-2015 Comprehensive metabolic panel Metabolic Panel, Comprehensive (59484) [facility] Work Phone: Start: 08-13-2015 Lipid panel Lipid Panel (86583) [facility] Work Phone: Start: 06-14-2013 Patient Education High Cholesterol (Hypercholesterolemia) *: cardiovascular health [facility] Work Phone: Start: 06-14-2013 Urine albumin quantitative MICROALBUMIN: CREATININE RATIO (32525) AND (04696) [facility] Work Phone: Start: 06-14-2013 Comprehensive metabolic panel METABOLIC PANEL, COMPREHENSIVE (93018) [facility] Work Phone: Start: 06-14-2013 Lipid panel LIPID PANEL (12887) [facility] Work Phone: Start: 06-14-2013 Blood count manual cell count each CBC WITH MANUAL DIFF (12057) [facility] Work Phone: Start: 05-18-2012 Patient Education High Blood Pressure (Essential Hypertension) *: cardiovascular health [facility] Work Phone: Start: 01-08-2010 Provider Instructions for Treatment *Cholesterol - Medication Side Effects [facility] Work Phone: Start: 01-08-2010 Assay of prolactin PROLACTIN (59694) [facility] Work Phone: Start: 01-08-2010 Protein mass conc PROLACTIN (79504) [facility] Work Phone: Start: 01-08-2010 Lipid panel LIPID PANEL (29426) [facility] Work Phone: Start: 01-08-2010 Hepatic function panel HEPATIC FUNCTION PANEL (44030) [facility] Work Phone: Start: 11-01-2007 Provider Instructions for Treatment *Otitis Externa Education [facility] Work Phone: Start: 06-15-2007 Lipid panel Lipid Panel (44075) [facility] Work Phone: Start: 06-15-2007 Comprehensive metabolic panel Metabolic Panel, Comprehensive (90330) [facility] Work Phone: Payers Date Payer Category Payer Policy ID Unknown Social History Date Type Detail Facility Caffeine Use Never smoker [facility] Work Phone: Functional Status Date Assessment Result Facility 02-10-2017 LP-IR Score LP-IR Score <25 [facility] Work Phone: Clinical Notes Note Date & Type Note Facility [facility]; [facility] Work Phone: Instructions* Name Dates Details How to access health informa tion online Indication:Hypercholesterolemia Start:04-Apr-2019 Instruction Type:Patient Education How to access health informa tion online - Detail Indication:Hypercholesterolemia Start:04-Apr-2019 Instruction Type:Patient Education Patient Instructions Indication:Hypercholesterolemia Start:04-Apr-2019 Instruction Type:Provider Instructions for Treatment How to access health informa tion online Indication:Encounter for general adult medical examination with abnormal findings Start:16-Nov-2018 Instruction Type:Patient Education How to access health informa tion online - Detail Indication:Encounter for general adult medical examination with abnormal findings Start:16-Nov-2018 Instruction Type:Patient Education Patient Instructions Indication:Encounter for general adult medical examination with abnormal findings Start:16-Nov-2018 Instruction Type:Provider Instructions for Treatment How to access health informa tion online Indication:Encounter for general adult medical examination with abnormal findings Start:02-Nov-2017 Instruction Type:Patient Education How to access health informa tion online - Detail Indication:Encounter for general adult medical examination with abnormal findings Start:02-Nov-2017 Instruction Type:Patient Education Patient Instructions Indication:Encounter for general adult medical examination with abnormal findings Start:02-Nov-2017 Instruction Type:Provider Instructions for Treatment How to access health informa tion online Indication:Hypercholesterolemia Start:16-Feb-2017 Instruction Type:Patient Education How to access health informa tion online - Detail Indication:Hypercholesterolemia Start:16-Feb-2017 Instruction Type:Patient Education Patient Instructions Indication:Hypercholesterolemia Start:16-Feb-2017 Instruction Type:Provider Instructions for Treatment How to access health informa tion online Indication:Hypertension Start:20-Aug-2015 Instruction Type:Patient Education How to access health informa tion online - Detail Indication:Hypertension Start:20-Aug-2015 Instruction Type:Patient Education Patient Instructions Indication:Hypertension Start:20-Aug-2015 Instruction Type:Provider Instructions for Treatment Patient Instructions Indication:Hypercholesterolemia Start:14-Jun-2013 Instruction Type:Provider Instructions for Treatment Patient Instructions Indication:Hypertension Start:18-May-2012 Instruction Type:Provider Instructions for Treatment [facility]; [facility] Work Phone: Instructions* Name Dates Details How to access health informa tion online Indication:Hypercholesterolemia Start:04-Apr-2019 Instruction Type:Patient Education How to access health informa tion online - Detail Indication:Hypercholesterolemia Start:04-Apr-2019 Instruction Type:Patient Education Patient Instructions Indication:Hypercholesterolemia Start:04-Apr-2019 Instruction Type:Provider Instructions for Treatment How to access health informa tion online Indication:Encounter for general adult medical examination with abnormal findings Start:16-Nov-2018 Instruction Type:Patient Education How to access health informa tion online - Detail Indication:Encounter for general adult medical examination with abnormal findings Start:16-Nov-2018 Instruction Type:Patient Education Patient Instructions Indication:Encounter for general adult medical examination with abnormal findings Start:16-Nov-2018 Instruction Type:Provider Instructions for Treatment How to access health informa tion online Indication:Encounter for general adult medical examination with abnormal findings Start:02-Nov-2017 Instruction Type:Patient Education How to access health informa tion online - Detail Indication:Encounter for general adult medical examination with abnormal findings Start:02-Nov-2017 Instruction Type:Patient Education Patient Instructions Indication:Encounter for general adult medical examination with abnormal findings Start:02-Nov-2017 Instruction Type:Provider Instructions for Treatment How to access health informa tion online Indication:Hypercholesterolemia Start:16-Feb-2017 Instruction Type:Patient Education How to access health informa tion online - Detail Indication:Hypercholesterolemia Start:16-Feb-2017 Instruction Type:Patient Education Patient Instructions Indication:Hypercholesterolemia Start:16-Feb-2017 Instruction Type:Provider Instructions for Treatment How to access health informa tion online Indication:Hypertension Start:20-Aug-2015 Instruction Type:Patient Education How to access health informa tion online - Detail Indication:Hypertension Start:20-Aug-2015 Instruction Type:Patient Education Patient Instructions Indication:Hypertension Start:20-Aug-2015 Instruction Type:Provider Instructions for Treatment Patient Instructions Indication:Hypercholesterolemia Start:14-Jun-2013 Instruction Type:Provider Instructions for Treatment Patient Instructions Indication:Hypertension Start:18-May-2012 Instruction Type:Provider Instructions for Treatment [facility]; [facility] Work Phone: Instructions* Name Dates Details Patient Instructions Indication:Encounter for general adult medical examination with abnormal findings Start:17-Dec-2020 Instruction Type:Provider Instructions for Treatment How to Access Health Informa tion Online using Patient Portal and 3rd [employer] Apps Indication:Encounter for general adult medical examination with abnormal findings Start:17-Dec-2020 Instruction Type:Patient Education How to access health informa tion online Indication:Hypercholesterolemia Start:04-Apr-2019 Instruction Type:Patient Education How to access health informa tion online - Detail Indication:Hypercholesterolemia Start:04-Apr-2019 Instruction Type:Patient Education Patient Instructions Indication:Hypercholesterolemia Start:04-Apr-2019 Instruction Type:Provider Instructions for Treatment How to access health informa tion online Indication:Encounter for general adult medical examination with abnormal findings Start:16-Nov-2018 Instruction Type:Patient Education How to access health informa tion online - Detail Indication:Encounter for general adult medical examination with abnormal findings Start:16-Nov-2018 Instruction Type:Patient Education Patient Instructions Indication:Encounter for general adult medical examination with abnormal findings Start:16-Nov-2018 Instruction Type:Provider Instructions for Treatment How to access health informa tion online Indication:Encounter for general adult medical examination with abnormal findings Start:02-Nov-2017 Instruction Type:Patient Education How to access health informa tion online - Detail Indication:Encounter for general adult medical examination with abnormal findings Start:02-Nov-2017 Instruction Type:Patient Education Patient Instructions Indication:Encounter for general adult medical examination with abnormal findings Start:02-Nov-2017 Instruction Type:Provider Instructions for Treatment How to access health informa tion online Indication:Hypercholesterolemia Start:16-Feb-2017 Instruction Type:Patient Education How to access health informa tion online - Detail Indication:Hypercholesterolemia Start:16-Feb-2017 Instruction Type:Patient Education Patient Instructions Indication:Hypercholesterolemia Start:16-Feb-2017 Instruction Type:Provider Instructions for Treatment How to access health informa tion online Indication:Hypertension Start:20-Aug-2015 Instruction Type:Patient Education How to access health informa tion online - Detail Indication:Hypertension Start:20-Aug-2015 Instruction Type:Patient Education Patient Instructions Indication:Hypertension Start:20-Aug-2015 Instruction Type:Provider Instructions for Treatment Patient Instructions Indication:Hypercholesterolemia Start:14-Jun-2013 Instruction Type:Provider Instructions for Treatment Patient Instructions Indication:Hypertension Start:18-May-2012 Instruction Type:Provider Instructions for Treatment [facility]; [facility] Work Phone: Instructions* Name Dates Details Patient Instructions Indication:Encounter for general adult medical examination with abnormal findings Start:17-Dec-2020 Instruction Type:Provider Instructions for Treatment How to Access Health Informa tion Online using Patient Portal and [employer]rd [employer] Apps Indication:Encounter for general adult medical examination with abnormal findings Start:17-Dec-2020 Instruction Type:Patient Education How to access health informa tion online Indication:Hypercholesterolemia Start:04-Apr-2019 Instruction Type:Patient Education How to access health informa tion online - Detail Indication:Hypercholesterolemia Start:04-Apr-2019 Instruction Type:Patient Education Patient Instructions Indication:Hypercholesterolemia Start:04-Apr-2019 Instruction Type:Provider Instructions for Treatment How to access health informa tion online Indication:Encounter for general adult medical examination with abnormal findings Start:16-Nov-2018 Instruction Type:Patient Education How to access health informa tion online - Detail Indication:Encounter for general adult medical examination with abnormal findings Start:16-Nov-2018 Instruction Type:Patient Education Patient Instructions Indication:Encounter for general adult medical examination with abnormal findings Start:16-Nov-2018 Instruction Type:Provider Instructions for Treatment How to access health informa tion online Indication:Encounter for general adult medical examination with abnormal findings Start:02-Nov-2017 Instruction Type:Patient Education How to access health informa tion online - Detail Indication:Encounter for general adult medical examination with abnormal findings Start:02-Nov-2017 Instruction Type:Patient Education Patient Instructions Indication:Encounter for general adult medical examination with abnormal findings Start:02-Nov-2017 Instruction Type:Provider Instructions for Treatment How to access health informa tion online Indication:Hypercholesterolemia Start:16-Feb-2017 Instruction Type:Patient Education How to access health informa tion online - Detail Indication:Hypercholesterolemia Start:16-Feb-2017 Instruction Type:Patient Education Patient Instructions Indication:Hypercholesterolemia Start:16-Feb-2017 Instruction Type:Provider Instructions for Treatment How to access health informa tion online Indication:Hypertension Start:20-Aug-2015 Instruction Type:Patient Education How to access health informa tion online - Detail Indication:Hypertension Start:20-Aug-2015 Instruction Type:Patient Education Patient Instructions Indication:Hypertension Start:20-Aug-2015 Instruction Type:Provider Instructions for Treatment Patient Instructions Indication:Hypercholesterolemia Start:14-Jun-2013 Instruction Type:Provider Instructions for Treatment Patient Instructions Indication:Hypertension Start:18-May-2012 Instruction Type:Provider Instructions for Treatment [facility]; [facility] Work Phone: Instructions* Name Dates Details Patient Instructions Indication:Encounter for general adult medical examination with abnormal findings Start:17-Dec-2020 Instruction Type:Provider Instructions for Treatment How to Access Health Informa tion Online using Patient Portal and [employer] Apps Indication:Encounter for general adult medical examination with abnormal findings Start:17-Dec-2020 Instruction Type:Patient Education How to access health informa tion online Indication:Hypercholesterolemia Start:04-Apr-2019 Instruction Type:Patient Education How to access health informa tion online - Detail Indication:Hypercholesterolemia Start:04-Apr-2019 Instruction Type:Patient Education Patient Instructions Indication:Hypercholesterolemia Start:04-Apr-2019 Instruction Type:Provider Instructions for Treatment How to access health informa tion online Indication:Encounter for general adult medical examination with abnormal findings Start:16-Nov-2018 Instruction Type:Patient Education How to access health informa tion online - Detail Indication:Encounter for general adult medical examination with abnormal findings Start:16-Nov-2018 Instruction Type:Patient Education Patient Instructions Indication:Encounter for general adult medical examination with abnormal findings Start:16-Nov-2018 Instruction Type:Provider Instructions for Treatment How to access health informa tion online Indication:Encounter for general adult medical examination with abnormal findings Start:02-Nov-2017 Instruction Type:Patient Education How to access health informa tion online - Detail Indication:Encounter for general adult medical examination with abnormal findings Start:02-Nov-2017 Instruction Type:Patient Education Patient Instructions Indication:Encounter for general adult medical examination with abnormal findings Start:02-Nov-2017 Instruction Type:Provider Instructions for Treatment How to access health informa tion online Indication:Hypercholesterolemia Start:16-Feb-2017 Instruction Type:Patient Education How to access health informa tion online - Detail Indication:Hypercholesterolemia Start:16-Feb-2017 Instruction Type:Patient Education Patient Instructions Indication:Hypercholesterolemia Start:16-Feb-2017 Instruction Type:Provider Instructions for Treatment How to access health informa tion online Indication:Hypertension Start:20-Aug-2015 Instruction Type:Patient Education How to access health informa tion online - Detail Indication:Hypertension Start:20-Aug-2015 Instruction Type:Patient Education Patient Instructions Indication:Hypertension Start:20-Aug-2015 Instruction Type:Provider Instructions for Treatment Patient Instructions Indication:Hypercholesterolemia Start:14-Jun-2013 Instruction Type:Provider Instructions for Treatment Patient Instructions Indication:Hypertension Start:18-May-2012 Instruction Type:Provider Instructions for Treatment [facility]; [facility] Work Phone: Instructions* Name Dates Details Patient Instructions Indication:Encounter for general adult medical examination with abnormal findings Start:17-Dec-2020 Instruction Type:Provider Instructions for Treatment How to Access Health Informa tion Online using Patient Portal and [employer] Apps Indication:Encounter for general adult medical examination with abnormal findings Start:17-Dec-2020 Instruction Type:Patient Education How to access health informa tion online Indication:Hypercholesterolemia Start:04-Apr-2019 Instruction Type:Patient Education How to access health informa tion online - Detail Indication:Hypercholesterolemia Start:04-Apr-2019 Instruction Type:Patient Education Patient Instructions Indication:Hypercholesterolemia Start:04-Apr-2019 Instruction Type:Provider Instructions for Treatment How to access health informa tion online Indication:Encounter for general adult medical examination with abnormal findings Start:16-Nov-2018 Instruction Type:Patient Education How to access health informa tion online - Detail Indication:Encounter for general adult medical examination with abnormal findings Start:16-Nov-2018 Instruction Type:Patient Education Patient Instructions Indication:Encounter for general adult medical examination with abnormal findings Start:16-Nov-2018 Instruction Type:Provider Instructions for Treatment How to access health informa tion online Indication:Encounter for general adult medical examination with abnormal findings Start:02-Nov-2017 Instruction Type:Patient Education How to access health informa tion online - Detail Indication:Encounter for general adult medical examination with abnormal findings Start:02-Nov-2017 Instruction Type:Patient Education Patient Instructions Indication:Encounter for general adult medical examination with abnormal findings Start:02-Nov-2017 Instruction Type:Provider Instructions for Treatment How to access health informa tion online Indication:Hypercholesterolemia Start:16-Feb-2017 Instruction Type:Patient Education How to access health informa tion online - Detail Indication:Hypercholesterolemia Start:16-Feb-2017 Instruction Type:Patient Education Patient Instructions Indication:Hypercholesterolemia Start:16-Feb-2017 Instruction Type:Provider Instructions for Treatment How to access health informa tion online Indication:Hypertension Start:20-Aug-2015 Instruction Type:Patient Education How to access health informa tion online - Detail Indication:Hypertension Start:20-Aug-2015 Instruction Type:Patient Education Patient Instructions Indication:Hypertension Start:20-Aug-2015 Instruction Type:Provider Instructions for Treatment Patient Instructions Indication:Hypercholesterolemia Start:14-Jun-2013 Instruction Type:Provider Instructions for Treatment Patient Instructions Indication:Hypertension Start:18-May-2012 Instruction Type:Provider Instructions for Treatment [facility]; [facility] Work Phone: Instructions* Name Dates Details Patient Instructions Indication:Encounter for general adult medical examination with abnormal findings Start:17-Dec-2020 Instruction Type:Provider Instructions for Treatment How to Access Health Informa tion Online using Patient Portal and [employer] Apps Indication:Encounter for general adult medical examination with abnormal findings Start:17-Dec-2020 Instruction Type:Patient Education How to access health informa tion online Indication:Hypercholesterolemia Start:04-Apr-2019 Instruction Type:Patient Education How to access health informa tion online - Detail Indication:Hypercholesterolemia Start:04-Apr-2019 Instruction Type:Patient Education Patient Instructions Indication:Hypercholesterolemia Start:04-Apr-2019 Instruction Type:Provider Instructions for Treatment How to access health informa tion online Indication:Encounter for general adult medical examination with abnormal findings Start:16-Nov-2018 Instruction Type:Patient Education How to access health informa tion online - Detail Indication:Encounter for general adult medical examination with abnormal findings Start:16-Nov-2018 Instruction Type:Patient Education Patient Instructions Indication:Encounter for general adult medical examination with abnormal findings Start:16-Nov-2018 Instruction Type:Provider Instructions for Treatment How to access health informa tion online Indication:Encounter for general adult medical examination with abnormal findings Start:02-Nov-2017 Instruction Type:Patient Education How to access health informa tion online - Detail Indication:Encounter for general adult medical examination with abnormal findings Start:02-Nov-2017 Instruction Type:Patient Education Patient Instructions Indication:Encounter for general adult medical examination with abnormal findings Start:02-Nov-2017 Instruction Type:Provider Instructions for Treatment How to access health informa tion online Indication:Hypercholesterolemia Start:16-Feb-2017 Instruction Type:Patient Education How to access health informa tion online - Detail Indication:Hypercholesterolemia Start:16-Feb-2017 Instruction Type:Patient Education Patient Instructions Indication:Hypercholesterolemia Start:16-Feb-2017 Instruction Type:Provider Instructions for Treatment How to access health informa tion online Indication:Hypertension Start:20-Aug-2015 Instruction Type:Patient Education How to access health informa tion online - Detail Indication:Hypertension Start:20-Aug-2015 Instruction Type:Patient Education Patient Instructions Indication:Hypertension Start:20-Aug-2015 Instruction Type:Provider Instructions for Treatment Patient Instructions Indication:Hypercholesterolemia Start:14-Jun-2013 Instruction Type:Provider Instructions for Treatment Patient Instructions Indication:Hypertension Start:18-May-2012 Instruction Type:Provider Instructions for Treatment [facility]; [facility] Work Phone: Instructions* Name Dates Details Patient Instructions Indication:Encounter for general adult medical examination with abnormal findings Start:17-Dec-2020 Instruction Type:Provider Instructions for Treatment How to Access Health Informa tion Online using Patient Portal and [employer] Apps Indication:Encounter for general adult medical examination with abnormal findings Start:17-Dec-2020 Instruction Type:Patient Education How to access health informa tion online Indication:Hypercholesterolemia Start:04-Apr-2019 Instruction Type:Patient Education How to access health informa tion online - Detail Indication:Hypercholesterolemia Start:04-Apr-2019 Instruction Type:Patient Education Patient Instructions Indication:Hypercholesterolemia Start:04-Apr-2019 Instruction Type:Provider Instructions for Treatment How to access health informa tion online Indication:Encounter for general adult medical examination with abnormal findings Start:16-Nov-2018 Instruction Type:Patient Education How to access health informa tion online - Detail Indication:Encounter for general adult medical examination with abnormal findings Start:16-Nov-2018 Instruction Type:Patient Education Patient Instructions Indication:Encounter for general adult medical examination with abnormal findings Start:16-Nov-2018 Instruction Type:Provider Instructions for Treatment How to access health informa tion online Indication:Encounter for general adult medical examination with abnormal findings Start:02-Nov-2017 Instruction Type:Patient Education How to access health informa tion online - Detail Indication:Encounter for general adult medical examination with abnormal findings Start:02-Nov-2017 Instruction Type:Patient Education Patient Instructions Indication:Encounter for general adult medical examination with abnormal findings Start:02-Nov-2017 Instruction Type:Provider Instructions for Treatment How to access health informa tion online Indication:Hypercholesterolemia Start:16-Feb-2017 Instruction Type:Patient Education How to access health informa tion online - Detail Indication:Hypercholesterolemia Start:16-Feb-2017 Instruction Type:Patient Education Patient Instructions Indication:Hypercholesterolemia Start:16-Feb-2017 Instruction Type:Provider Instructions for Treatment How to access health informa tion online Indication:Hypertension Start:20-Aug-2015 Instruction Type:Patient Education How to access health informa tion online - Detail Indication:Hypertension Start:20-Aug-2015 Instruction Type:Patient Education Patient Instructions Indication:Hypertension Start:20-Aug-2015 Instruction Type:Provider Instructions for Treatment Patient Instructions Indication:Hypercholesterolemia Start:14-Jun-2013 Instruction Type:Provider Instructions for Treatment Patient Instructions Indication:Hypertension Start:18-May-2012 Instruction Type:Provider Instructions for Treatment [facility]; [facility] Work Phone: Instructions* Name Dates Details Patient Instructions Indication:Encounter for general adult medical examination with abnormal findings Start:17-Dec-2020 Instruction Type:Provider Instructions for Treatment How to Access Health Informa tion Online using Patient Portal and [employer] Apps Indication:Encounter for general adult medical examination with abnormal findings Start:17-Dec-2020 Instruction Type:Patient Education How to access health informa tion online Indication:Hypercholesterolemia Start:04-Apr-2019 Instruction Type:Patient Education How to access health informa tion online - Detail Indication:Hypercholesterolemia Start:04-Apr-2019 Instruction Type:Patient Education Patient Instructions Indication:Hypercholesterolemia Start:04-Apr-2019 Instruction Type:Provider Instructions for Treatment How to access health informa tion online Indication:Encounter for general adult medical examination with abnormal findings Start:16-Nov-2018 Instruction Type:Patient Education How to access health informa tion online - Detail Indication:Encounter for general adult medical examination with abnormal findings Start:16-Nov-2018 Instruction Type:Patient Education Patient Instructions Indication:Encounter for general adult medical examination with abnormal findings Start:16-Nov-2018 Instruction Type:Provider Instructions for Treatment How to access health informa tion online Indication:Encounter for general adult medical examination with abnormal findings Start:02-Nov-2017 Instruction Type:Patient Education How to access health informa tion online - Detail Indication:Encounter for general adult medical examination with abnormal findings Start:02-Nov-2017 Instruction Type:Patient Education Patient Instructions Indication:Encounter for general adult medical examination with abnormal findings Start:02-Nov-2017 Instruction Type:Provider Instructions for Treatment How to access health informa tion online Indication:Hypercholesterolemia Start:16-Feb-2017 Instruction Type:Patient Education How to access health informa tion online - Detail Indication:Hypercholesterolemia Start:16-Feb-2017 Instruction Type:Patient Education Patient Instructions Indication:Hypercholesterolemia Start:16-Feb-2017 Instruction Type:Provider Instructions for Treatment How to access health informa tion online Indication:Hypertension Start:20-Aug-2015 Instruction Type:Patient Education How to access health informa tion online - Detail Indication:Hypertension Start:20-Aug-2015 Instruction Type:Patient Education Patient Instructions Indication:Hypertension Start:20-Aug-2015 Instruction Type:Provider Instructions for Treatment Patient Instructions Indication:Hypercholesterolemia Start:14-Jun-2013 Instruction Type:Provider Instructions for Treatment Patient Instructions Indication:Hypertension Start:18-May-2012 Instruction Type:Provider Instructions for Treatment [facility]; [facility] Work Phone: Instructions* Name Dates Details Patient Instructions Indication:Encounter for general adult medical examination with abnormal findings Start:17-Dec-2020 Instruction Type:Provider Instructions for Treatment How to Access Health Informa tion Online using Patient Portal and [employer] Apps Indication:Encounter for general adult medical examination with abnormal findings Start:17-Dec-2020 Instruction Type:Patient Education How to access health informa tion online Indication:Hypercholesterolemia Start:04-Apr-2019 Instruction Type:Patient Education How to access health informa tion online - Detail Indication:Hypercholesterolemia Start:04-Apr-2019 Instruction Type:Patient Education Patient Instructions Indication:Hypercholesterolemia Start:04-Apr-2019 Instruction Type:Provider Instructions for Treatment How to access health informa tion online Indication:Encounter for general adult medical examination with abnormal findings Start:16-Nov-2018 Instruction Type:Patient Education How to access health informa tion online - Detail Indication:Encounter for general adult medical examination with abnormal findings Start:16-Nov-2018 Instruction Type:Patient Education Patient Instructions Indication:Encounter for general adult medical examination with abnormal findings Start:16-Nov-2018 Instruction Type:Provider Instructions for Treatment How to access health informa tion online Indication:Encounter for general adult medical examination with abnormal findings Start:02-Nov-2017 Instruction Type:Patient Education How to access health informa tion online - Detail Indication:Encounter for general adult medical examination with abnormal findings Start:02-Nov-2017 Instruction Type:Patient Education Patient Instructions Indication:Encounter for general adult medical examination with abnormal findings Start:02-Nov-2017 Instruction Type:Provider Instructions for Treatment How to access health informa tion online Indication:Hypercholesterolemia Start:16-Feb-2017 Instruction Type:Patient Education How to access health informa tion online - Detail Indication:Hypercholesterolemia Start:16-Feb-2017 Instruction Type:Patient Education Patient Instructions Indication:Hypercholesterolemia Start:16-Feb-2017 Instruction Type:Provider Instructions for Treatment How to access health informa tion online Indication:Hypertension Start:20-Aug-2015 Instruction Type:Patient Education How to access health informa tion online - Detail Indication:Hypertension Start:20-Aug-2015 Instruction Type:Patient Education Patient Instructions Indication:Hypertension Start:20-Aug-2015 Instruction Type:Provider Instructions for Treatment Patient Instructions Indication:Hypercholesterolemia Start:14-Jun-2013 Instruction Type:Provider Instructions for Treatment Patient Instructions Indication:Hypertension Start:18-May-2012 Instruction Type:Provider Instructions for Treatment [facility]; [facility] Work Phone: Instructions* Name Dates Details Patient Instructions Indication:Encounter for general adult medical examination with abnormal findings Start:17-Dec-2020 Instruction Type:Provider Instructions for Treatment How to Access Health Informa tion Online using Patient Portal and [employer] Apps Indication:Encounter for general adult medical examination with abnormal findings Start:17-Dec-2020 Instruction Type:Patient Education How to access health informa tion online Indication:Hypercholesterolemia Start:04-Apr-2019 Instruction Type:Patient Education How to access health informa tion online - Detail Indication:Hypercholesterolemia Start:04-Apr-2019 Instruction Type:Patient Education Patient Instructions Indication:Hypercholesterolemia Start:04-Apr-2019 Instruction Type:Provider Instructions for Treatment How to access health informa tion online Indication:Encounter for general adult medical examination with abnormal findings Start:16-Nov-2018 Instruction Type:Patient Education How to access health informa tion online - Detail Indication:Encounter for general adult medical examination with abnormal findings Start:16-Nov-2018 Instruction Type:Patient Education Patient Instructions Indication:Encounter for general adult medical examination with abnormal findings Start:16-Nov-2018 Instruction Type:Provider Instructions for Treatment How to access health informa tion online Indication:Encounter for general adult medical examination with abnormal findings Start:02-Nov-2017 Instruction Type:Patient Education How to access health informa tion online - Detail Indication:Encounter for general adult medical examination with abnormal findings Start:02-Nov-2017 Instruction Type:Patient Education Patient Instructions Indication:Encounter for general adult medical examination with abnormal findings Start:02-Nov-2017 Instruction Type:Provider Instructions for Treatment How to access health informa tion online Indication:Hypercholesterolemia Start:16-Feb-2017 Instruction Type:Patient Education How to access health informa tion online - Detail Indication:Hypercholesterolemia Start:16-Feb-2017 Instruction Type:Patient Education Patient Instructions Indication:Hypercholesterolemia Start:16-Feb-2017 Instruction Type:Provider Instructions for Treatment How to access health informa tion online Indication:Hypertension Start:20-Aug-2015 Instruction Type:Patient Education How to access health informa tion online - Detail Indication:Hypertension Start:20-Aug-2015 Instruction Type:Patient Education Patient Instructions Indication:Hypertension Start:20-Aug-2015 Instruction Type:Provider Instructions for Treatment Patient Instructions Indication:Hypercholesterolemia Start:14-Jun-2013 Instruction Type:Provider Instructions for Treatment Patient Instructions Indication:Hypertension Start:18-May-2012 Instruction Type:Provider Instructions for Treatment [facility]; [facility] Work Phone: Family History Unknown Family Member Name Dates Details Brother 1 Comments:colon cancer after 50 yo, older Status:Active Father Comments:CHF rheumatic fever , of this. Status:Active Mother Comments:CVA later in life. lived 87 yo Status:Active siblings Comments:6 more and healthy Status:Active Sister 1 Comments:Breast 48 yo, CVA i n 70's Status:Active Sister 2 Comments:uterine cancer, thang ast cancer Status:Active Sister 3 Comments:CLL Status:Active Unknown Family Member Name Dates Details Brother 1 Comments:colon cancer after 50 yo, older Status:Active Father Comments:CHF rheumatic fever , of this. Status:Active Mother Comments:CVA later in life. lived 87 yo Status:Active siblings Comments:6 more and healthy Status:Active Sister 1 Comments:Breast 48 yo, CVA i n 70's Status:Active Sister 2 Comments:uterine cancer, thang ast cancer Status:Active Sister 3 Comments:CLL Status:Active Unknown Family Member Name Dates Details Brother 1 Comments:colon cancer after 50 yo, older Status:Active Father Comments:CHF rheumatic fever , of this. Status:Active Mother Comments:CVA later in life. lived 87 yo Status:Active siblings Comments:6 more and healthy Status:Active Sister 1 Comments:Breast 48 yo, CVA i n 70's Status:Active Sister 2 Comments:uterine cancer, thang ast cancer Status:Active Sister 3 Comments:CLL Status:Active Unknown Family Member Name Dates Details Brother 1 Comments:colon cancer after 50 yo, older Status:Active Father Comments:CHF rheumatic fever , of this. Status:Active Mother Comments:CVA later in life. lived 87 yo Status:Active siblings Comments:6 more and healthy Status:Active Sister 1 Comments:Breast 48 yo, CVA i n 70's Status:Active Sister 2 Comments:uterine cancer, thang ast cancer Status:Active Sister 3 Comments:CLL Status:Active Unknown Family Member Name Dates Details Brother 1 Comments:colon cancer after 50 yo, older Status:Active Father Comments:CHF rheumatic fever , of this. Status:Active Mother Comments:CVA later in life. lived 87 yo Status:Active siblings Comments:6 more and healthy Status:Active Sister 1 Comments:Breast 48 yo, CVA i n 70's Status:Active Sister 2 Comments:uterine cancer Status:Active Sister 3 Comments:CLL Status:Active Unknown Family Member Name Dates Details Brother 1 Comments:colon cancer after 50 yo, older Status:Active Father Comments:CHF rheumatic fever , of this. Status:Active Mother Comments:CVA later in life. lived 87 yo Status:Active siblings Comments:6 more and healthy Status:Active Sister 1 Comments:Breast 48 yo, CVA i n 70's Status:Active Sister 2 Comments:uterine cancer, thang ast cancer Status:Active Sister 3 Comments:CLL Status:Active Unknown Family Member Name Dates Details Brother 1 Comments:colon cancer after 50 yo, older Status:Active Father Comments:CHF rheumatic fever , of this. Status:Active Mother Comments:CVA later in life. lived 87 yo Status:Active siblings Comments:6 more and healthy Status:Active Sister 1 Comments:Breast 48 yo, CVA i n 70's Status:Active Sister 2 Comments:uterine cancer Status:Active Sister 3 Comments:CLL Status:Active Unknown Family Member Name Dates Details Brother 1 Comments:colon cancer after 50 yo, older Status:Active Father Comments:CHF rheumatic fever , of this. Status:Active Mother Comments:CVA later in life. lived 87 yo Status:Active siblings Comments:6 more and healthy Status:Active Sister 1 Comments:Breast 48 yo, CVA i n 70's Status:Active Sister 2 Comments:uterine cancer, thang ast cancer Status:Active Sister 3 Comments:CLL Status:Active Unknown Family Member Name Dates Details Brother 1 Comments:colon cancer after 50 yo, older Status:Active Father Comments:CHF rheumatic fever , of this. Status:Active Mother Comments:CVA later in life. lived 87 yo Status:Active siblings Comments:6 more and healthy Status:Active Sister 1 Comments:Breast 48 yo, CVA i n 70's Status:Active Sister 2 Comments:uterine cancer, thang ast cancer Status:Active Sister 3 Comments:CLL Status:Active Unknown Family Member Name Dates Details Brother 1 Comments:colon cancer after 50 yo, older Status:Active Father Comments:CHF rheumatic fever , of this. Status:Active Mother Comments:CVA later in life. lived 87 yo Status:Active siblings Comments:6 more and healthy Status:Active Sister 1 Comments:Breast 48 yo, CVA i n 70's Status:Active Sister 2 Comments:uterine cancer, thang ast cancer Status:Active Sister 3 Comments:CLL Status:Active Unknown Family Member Name Dates Details Brother 1 Comments:colon cancer after 50 yo, older Status:Active Father Comments:CHF rheumatic fever , of this. Status:Active Mother Comments:CVA later in life. lived 87 yo Status:Active siblings Comments:6 more and healthy Status:Active Sister 1 Comments:Breast 48 yo, CVA i n 70's Status:Active Sister 2 Comments:uterine cancer, thang ast cancer Status:Active Sister 3 Comments:CLL Status:Active Unknown Family Member Name Dates Details Brother 1 Comments:colon cancer after 50 yo, older Status:Active Father Comments:CHF rheumatic fever , of this. Status:Active Mother Comments:CVA later in life. lived 87 yo Status:Active siblings Comments:6 more and healthy Status:Active Sister 1 Comments:Breast 48 yo, CVA i n 70's Status:Active Sister 2 Comments:uterine cancer, thang ast cancer Status:Active Sister 3 Comments:CLL Status:Active Unknown Family Member Name Dates Details Brother 1 Comments:colon cancer after 50 yo, older Status:Active Father Comments:CHF rheumatic fever , of this. Status:Active Mother Comments:CVA later in life. lived 87 yo Status:Active siblings Comments:6 more and healthy Status:Active Sister 1 Comments:Breast 48 yo, CVA i n 70's Status:Active Sister 2 Comments:uterine cancer, thang ast cancer Status:Active Sister 3 Comments:CLL Status:Active Unknown Family Member Name Dates Details Brother 1 Comments:colon cancer after 50 yo, older Status:Active Father Comments:CHF rheumatic fever , of this. Status:Active Mother Comments:CVA later in life. lived 87 yo Status:Active siblings Comments:6 more and healthy Status:Active Sister 1 Comments:Breast 48 yo, CVA i n 70's Status:Active Sister 2 Comments:uterine cancer, thang ast cancer Status:Active Sister 3 Comments:CLL Status:Active Unknown Family Member Name Dates Details Brother 1 Comments:colon cancer after 50 yo, older Status:Active Father Comments:CHF rheumatic fever , of this. Status:Active Mother Comments:CVA later in life. lived 87 yo Status:Active siblings Comments:6 more and healthy Status:Active Sister 1 Comments:Breast 48 yo, CVA i n 70's Status:Active Sister 2 Comments:uterine cancer, thang ast cancer Status:Active Sister 3 Comments:CLL Status:Active Unknown Family Member Name Dates Details brother Comments:CVA of complic ations 82yo Status:Active brother Comments:obesity, DMII, covi d 65 yo Status:Active Brother 1 Comments:colon cancer after 50 yo, older Status:Active Father Comments:CHF rheumatic fever , of this. Status:Active Mother Comments:CVA later in life. lived 87 yo Status:Active siblings Comments:6 more and healthy Status:Active Sister 1 Comments:Breast 48 yo, CVA i n 70's Status:Active Sister 2 Comments:uterine cancer, thang ast cancer Status:Active Sister 3 Comments:CLL Status:Active Unknown Family Member Name Dates Details brother Comments:CVA of complic ations 82yo Status:Active brother Comments:obesity, DMII, covi d 65 yo Status:Active Brother 1 Comments:colon cancer after 50 yo, older Status:Active Father Comments:CHF rheumatic fever , of this. Status:Active Mother Comments:CVA later in life. lived 87 yo Status:Active siblings Comments:6 more and healthy Status:Active Sister 1 Comments:Breast 48 yo, CVA i n 70's Status:Active Sister 2 Comments:uterine cancer, thang ast cancer Status:Active Sister 3 Comments:CLL Status:Active Unknown Family Member Name Dates Details brother Comments:CVA of complic ations 82yo Status:Active brother Comments:obesity, DMII, covi d 65 yo Status:Active Brother 1 Comments:colon cancer after 50 yo, older Status:Active Father Comments:CHF rheumatic fever , of this. Status:Active Mother Comments:CVA later in life. lived 87 yo Status:Active siblings Comments:6 more and healthy Status:Active Sister 1 Comments:Breast 48 yo, CVA i n 70's Status:Active Sister 2 Comments:uterine cancer, thang ast cancer Status:Active Sister 3 Comments:CLL Status:Active Unknown Family Member Name Dates Details brother Comments:obesity, DMII, covi d 65 yo Status:Active brother Comments:CVA of complic ations 82yo Status:Active Brother 1 Comments:colon cancer after 50 yo, older Status:Active Father Comments:CHF rheumatic fever , of this. Status:Active Mother Comments:CVA later in life. lived 87 yo Status:Active siblings Comments:6 more and healthy Status:Active Sister 1 Comments:Breast 48 yo, CVA i n 70's Status:Active Sister 2 Comments:uterine cancer, thang ast cancer Status:Active Sister 3 Comments:CLL Status:Active Instructions Name Dates Details How to access health informa tion online Indication:Encounter for general adult medical examination with abnormal findings Start:16-Nov-2018 Instruction Type:Patient Education How to access health informa tion online - Detail Indication:Encounter for general adult medical examination with abnormal findings Start:16-Nov-2018 Instruction Type:Patient Education Patient Instructions Indication:Encounter for general adult medical examination with abnormal findings Start:16-Nov-2018 Instruction Type:Provider Instructions for Treatment How to access health informa tion online Indication:Encounter for general adult medical examination with abnormal findings Start:02-Nov-2017 Instruction Type:Patient Education How to access health informa tion online - Detail Indication:Encounter for general adult medical examination with abnormal findings Start:02-Nov-2017 Instruction Type:Patient Education Patient Instructions Indication:Encounter for general adult medical examination with abnormal findings Start:02-Nov-2017 Instruction Type:Provider Instructions for Treatment How to access health informa tion online Indication:Hypercholesterolemia Start:16-Feb-2017 Instruction Type:Patient Education How to access health informa tion online - Detail Indication:Hypercholesterolemia Start:16-Feb-2017 Instruction Type:Patient Education Patient Instructions Indication:Hypercholesterolemia Start:16-Feb-2017 Instruction Type:Provider Instructions for Treatment How to access health informa tion online Indication:Hypertension Start:20-Aug-2015 Instruction Type:Patient Education How to access health informa tion online - Detail Indication:Hypertension Start:20-Aug-2015 Instruction Type:Patient Education Patient Instructions Indication:Hypertension Start:20-Aug-2015 Instruction Type:Provider Instructions for Treatment Patient Instructions Indication:Hypercholesterolemia Start:14-Jun-2013 Instruction Type:Provider Instructions for Treatment Patient Instructions Indication:Hypertension Start:18-May-2012 Instruction Type:Provider Instructions for Treatment Name Dates Details How to access health informa tion online Indication:Hypercholesterolemia Start:04-Apr-2019 Instruction Type:Patient Education How to access health informa tion online - Detail Indication:Hypercholesterolemia Start:04-Apr-2019 Instruction Type:Patient Education Patient Instructions Indication:Hypercholesterolemia Start:04-Apr-2019 Instruction Type:Provider Instructions for Treatment How to access health informa tion online Indication:Encounter for general adult medical examination with abnormal findings Start:16-Nov-2018 Instruction Type:Patient Education How to access health informa tion online - Detail Indication:Encounter for general adult medical examination with abnormal findings Start:16-Nov-2018 Instruction Type:Patient Education Patient Instructions Indication:Encounter for general adult medical examination with abnormal findings Start:16-Nov-2018 Instruction Type:Provider Instructions for Treatment How to access health informa tion online Indication:Encounter for general adult medical examination with abnormal findings Start:02-Nov-2017 Instruction Type:Patient Education How to access health informa tion online - Detail Indication:Encounter for general adult medical examination with abnormal findings Start:02-Nov-2017 Instruction Type:Patient Education Patient Instructions Indication:Encounter for general adult medical examination with abnormal findings Start:02-Nov-2017 Instruction Type:Provider Instructions for Treatment How to access health informa tion online Indication:Hypercholesterolemia Start:16-Feb-2017 Instruction Type:Patient Education How to access health informa tion online - Detail Indication:Hypercholesterolemia Start:16-Feb-2017 Instruction Type:Patient Education Patient Instructions Indication:Hypercholesterolemia Start:16-Feb-2017 Instruction Type:Provider Instructions for Treatment How to access health informa tion online Indication:Hypertension Start:20-Aug-2015 Instruction Type:Patient Education How to access health informa tion online - Detail Indication:Hypertension Start:20-Aug-2015 Instruction Type:Patient Education Patient Instructions Indication:Hypertension Start:20-Aug-2015 Instruction Type:Provider Instructions for Treatment Patient Instructions Indication:Hypercholesterolemia Start:14-Jun-2013 Instruction Type:Provider Instructions for Treatment Patient Instructions Indication:Hypertension Start:18-May-2012 Instruction Type:Provider Instructions for Treatment Name Dates Details How to access health informa tion online Indication:Hypercholesterolemia Start:04-Apr-2019 Instruction Type:Patient Education How to access health informa tion online - Detail Indication:Hypercholesterolemia Start:04-Apr-2019 Instruction Type:Patient Education Patient Instructions Indication:Hypercholesterolemia Start:04-Apr-2019 Instruction Type:Provider Instructions for Treatment How to access health informa tion online Indication:Encounter for general adult medical examination with abnormal findings Start:16-Nov-2018 Instruction Type:Patient Education How to access health informa tion online - Detail Indication:Encounter for general adult medical examination with abnormal findings Start:16-Nov-2018 Instruction Type:Patient Education Patient Instructions Indication:Encounter for general adult medical examination with abnormal findings Start:16-Nov-2018 Instruction Type:Provider Instructions for Treatment How to access health informa tion online Indication:Encounter for general adult medical examination with abnormal findings Start:02-Nov-2017 Instruction Type:Patient Education How to access health informa tion online - Detail Indication:Encounter for general adult medical examination with abnormal findings Start:02-Nov-2017 Instruction Type:Patient Education Patient Instructions Indication:Encounter for general adult medical examination with abnormal findings Start:02-Nov-2017 Instruction Type:Provider Instructions for Treatment How to access health informa tion online Indication:Hypercholesterolemia Start:16-Feb-2017 Instruction Type:Patient Education How to access health informa tion online - Detail Indication:Hypercholesterolemia Start:16-Feb-2017 Instruction Type:Patient Education Patient Instructions Indication:Hypercholesterolemia Start:16-Feb-2017 Instruction Type:Provider Instructions for Treatment How to access health informa tion online Indication:Hypertension Start:20-Aug-2015 Instruction Type:Patient Education How to access health informa tion online - Detail Indication:Hypertension Start:20-Aug-2015 Instruction Type:Patient Education Patient Instructions Indication:Hypertension Start:20-Aug-2015 Instruction Type:Provider Instructions for Treatment Patient Instructions Indication:Hypercholesterolemia Start:14-Jun-2013 Instruction Type:Provider Instructions for Treatment Patient Instructions Indication:Hypertension Start:18-May-2012 Instruction Type:Provider Instructions for Treatment Name Dates Details How to access health informa tion online Indication:Hypercholesterolemia Start:04-Apr-2019 Instruction Type:Patient Education How to access health informa tion online - Detail Indication:Hypercholesterolemia Start:04-Apr-2019 Instruction Type:Patient Education Patient Instructions Indication:Hypercholesterolemia Start:04-Apr-2019 Instruction Type:Provider Instructions for Treatment How to access health informa tion online Indication:Encounter for general adult medical examination with abnormal findings Start:16-Nov-2018 Instruction Type:Patient Education How to access health informa tion online - Detail Indication:Encounter for general adult medical examination with abnormal findings Start:16-Nov-2018 Instruction Type:Patient Education Patient Instructions Indication:Encounter for general adult medical examination with abnormal findings Start:16-Nov-2018 Instruction Type:Provider Instructions for Treatment How to access health informa tion online Indication:Encounter for general adult medical examination with abnormal findings Start:02-Nov-2017 Instruction Type:Patient Education How to access health informa tion online - Detail Indication:Encounter for general adult medical examination with abnormal findings Start:02-Nov-2017 Instruction Type:Patient Education Patient Instructions Indication:Encounter for general adult medical examination with abnormal findings Start:02-Nov-2017 Instruction Type:Provider Instructions for Treatment How to access health informa tion online Indication:Hypercholesterolemia Start:16-Feb-2017 Instruction Type:Patient Education How to access health informa tion online - Detail Indication:Hypercholesterolemia Start:16-Feb-2017 Instruction Type:Patient Education Patient Instructions Indication:Hypercholesterolemia Start:16-Feb-2017 Instruction Type:Provider Instructions for Treatment How to access health informa tion online Indication:Hypertension Start:20-Aug-2015 Instruction Type:Patient Education How to access health informa tion online - Detail Indication:Hypertension Start:20-Aug-2015 Instruction Type:Patient Education Patient Instructions Indication:Hypertension Start:20-Aug-2015 Instruction Type:Provider Instructions for Treatment Patient Instructions Indication:Hypercholesterolemia Start:14-Jun-2013 Instruction Type:Provider Instructions for Treatment Patient Instructions Indication:Hypertension Start:18-May-2012 Instruction Type:Provider Instructions for Treatment Name Dates Details Encounter for general adult medical examination with abnormal findings : How to access health information online Indication:Encounter for general adult medical examination with abnormal findings Encounter for general adult medical examination with abnormal findings : How to access health information online - Detail Indication:Encounter for general adult medical examination with abnormal findings Encounter for general adult medical examination with abnormal findings : Patient Instructions Indication:Encounter for general adult medical examination with abnormal findings Hypercholesterolemia : How t o access health information online Indication:Hypercholesterolemia Hypercholesterolemia : How t o access health information online - Detail Indication:Hypercholesterolemia Hypercholesterolemia : Patie nt Instructions Indication:Hypercholesterolemia Hypertension : How to access health information online Indication:Hypertension Hypertension : How to access health information online - Detail Indication:Hypertension Hypertension : Patient Instr uctions Indication:Hypertension Name Dates Details How to access health informa tion online Indication:Encounter for general adult medical examination with abnormal findings Start:16-Nov-2018 Instruction Type:Patient Education How to access health informa tion online - Detail Indication:Encounter for general adult medical examination with abnormal findings Start:16-Nov-2018 Instruction Type:Patient Education Patient Instructions Indication:Encounter for general adult medical examination with abnormal findings Start:16-Nov-2018 Instruction Type:Provider Instructions for Treatment How to access health informa tion online Indication:Encounter for general adult medical examination with abnormal findings Start:02-Nov-2017 Instruction Type:Patient Education How to access health informa tion online - Detail Indication:Encounter for general adult medical examination with abnormal findings Start:02-Nov-2017 Instruction Type:Patient Education Patient Instructions Indication:Encounter for general adult medical examination with abnormal findings Start:02-Nov-2017 Instruction Type:Provider Instructions for Treatment How to access health informa tion online Indication:Hypercholesterolemia Start:16-Feb-2017 Instruction Type:Patient Education How to access health informa tion online - Detail Indication:Hypercholesterolemia Start:16-Feb-2017 Instruction Type:Patient Education Patient Instructions Indication:Hypercholesterolemia Start:16-Feb-2017 Instruction Type:Provider Instructions for Treatment How to access health informa tion online Indication:Hypertension Start:20-Aug-2015 Instruction Type:Patient Education How to access health informa tion online - Detail Indication:Hypertension Start:20-Aug-2015 Instruction Type:Patient Education Patient Instructions Indication:Hypertension Start:20-Aug-2015 Instruction Type:Provider Instructions for Treatment Patient Instructions Indication:Hypercholesterolemia Start:14-Jun-2013 Instruction Type:Provider Instructions for Treatment Patient Instructions Indication:Hypertension Start:18-May-2012 Instruction Type:Provider Instructions for Treatment Name Dates Details Encounter for general adult medical examination with abnormal findings : How to access health information online Indication:Encounter for general adult medical examination with abnormal findings Encounter for general adult medical examination with abnormal findings : How to access health information online - Detail Indication:Encounter for general adult medical examination with abnormal findings Encounter for general adult medical examination with abnormal findings : Patient Instructions Indication:Encounter for general adult medical examination with abnormal findings Hypercholesterolemia : How t o access health information online Indication:Hypercholesterolemia Hypercholesterolemia : How t o access health information online - Detail Indication:Hypercholesterolemia Hypercholesterolemia : Patie nt Instructions Indication:Hypercholesterolemia Hypertension : How to access health information online Indication:Hypertension Hypertension : How to access health information online - Detail Indication:Hypertension Hypertension : Patient Instr uctions Indication:Hypertension Additional Source Comments FOR RECORDS PERTAINING TO PATIENTS WHO ARE OR HAVE BEEN ENROLLED IN A CHEMICAL DEPENDENCY/SUBSTANCEABUSE PROGRAM, SOME INFORMATION MAY BE OMITTED. This clinical summary was aggregated from multiple sources. Caution should be exercised in using it in the provision of clinical care. This summary normalizes information from multiple sources, and as a consequence, information in this document may materially change the coding, format and clinical context of patient data. In addition, data may be omitted in some cases. CLINICAL DECISIONS SHOULD BE BASED ON THE PRIMARY CLINICAL RECORDS. [email or web address] provides no warranty or guarantee of the accuracy or completeness of information in this document.
== END | disposition home or self-care (01) ==
LOC: OPBI 07:40
PROVIDERS: PCP Internal Medicine; Referring Provider Internal Medicine; Visit Provider Internal Medicine
DX: Z12.31 Encounter for screening mammogram for malignant neoplasm of breast (principal); Z80.3 Family history of malignant neoplasm of breast
CPT/HCPCS: 77063; 77067

== ENCOUNTER → 2023-08-15 | Outpatient (CLI) | payer MEDICARE, OTHER, SELFPAY ==
--- NOTE | 2023-08-15 | IMM_PTH ---
PATHOLOGY RESULTS PATIENT: FREDDIE STARK LOC: SIL U#:[id number] AGE/SX: 78/F ROOM: RE08/15/[address]: Dr. Timothy Garcia MD : 1945 BED: DIS: 08/15/2023 SPEC #: [id number] RECD: 08/16/23 13:54 STATUS: MAR REQ #: [id number] JEAN MARIE: 08/15/23 00:[address]: Timothy Garcia DEPT: IMMUNOHISTOCHEMISTRY RECD BY: Shereen Butler ENTERED: 08/16/23 13:55 SP TYPE: IMMUNO OTHR DR: Dr. Netta Arauoj MD Tissues: Left breast, NOS Procedures: CALPONIN-1 (add) E-CAD (add) HER2 LAVINIA (add) KI-67 (add) P53 (add) NY (add) IN SITU HYBRIDIZATION P40 (add) MOC-31 (add) ER (initial) PHYSICIAN & INSTITUTION [address] [address] SPECIMEN INFORMATION: Tissue Source: Left breast Clinical Info: Left breast mass Specimen Number: [id number] CPT code: 69589, 08028 x7, 53092 x3, 34573 x2 METHODOLOGY: Deparaffinized sections of prefer/formalin-fixed tissue or PAP/DQ stained slides are incubated with monoclonal/polyclonal antibodies/oligonucleotide probes. Localization is made via biotin free immunoperoxidase method. Appropriate controls are performed and reacted as expected. Results on target cell population are indicated in the following table: RESULTS: ANTIBODY / CLONE RESULT P53 (DO-7) positive, missense pattern Ki-67 (30-9) positive CK8 (73noouK90) positive CK5-6 (D5 & 1684) positive Calponin-1 (DP072U) negative P40 (BC28) negative E-Cad (ECH-6) positive MOC-31 (4561) positive MORPHOMETRIC ANALYSIS ER (clone 6F11) 0% NY (clone 16/1E2) 0% Her-2Neu (clone CB11) 1-2+ The prognostic test for HER2 is performed on formalin-fixed paraffin embedded tissue. A 3+ (positive) staining pattern is defined as intense, homogeneous, complete, circumferential membranous staining in >10% of contiguous tumor cells. A similar weak (2+) staining pattern is interpreted as equivocal. DANNY follow-up testing is recommended for all equivocal cases. Positivity/negativity for ER/NY is reported if > or < 1% of the tumor cells are immuno- reactive, respectively. The ASCO/CAP criteria is used for scoring. Reference: Journal of Clinical Oncology, 2013; 31:8991-7949 & 2010; 16:7019-5215. Ischemic time: Less than one hour. Duration of fixation: 10.5 Hrs; Sample Adequate: Yes. These assays have not been validated on decalcified tissues. Results should be interpreted with caution given the likelihood of false negativity on decalcified specimens or fixation greater than 72 hours. Alternative testing methods (FISH/dualISH for Her2; gene expression for ER) are recommended, if applicable. Please notify the laboratory if additional testing is required. These tests were developed and their performance characteristics determined by [facility]. They may not have been cleared or approved by the U.S. Food and Drug Administration. The FDA has determined that such clearance or approval is not necessary. The above immunohistochemical/dualISH markers are ordered and reviewed by the Pathologist. 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 Negative for estrogen receptors (unfavorable prognostic indicator). Negative for progesterone receptors (unfavorable prognostic indicator). Equivocal for overexpression of CAO3frh. AM:jericho 08/17/2023 ADDENDUM ADDENDUM 08/29/2023 11:57 IN SITU HYBRIDIZATION (DANNY) FOR HER2 Interpretation: Not Amplified HER2 : CEP-17 Ratio: 1.22 Average HER2 Signal: 2.95 Average CEP-17 Signal: 1.2 Number of Tumor Cells Scanned: 50 Interpretative Information: The INFORM HER2 Dual DANNY DNA Probe Cocktail assay is performed on formalin-fixed paraffin embedded tissue and determines HER2 gene status by detecting HER2 copies via silver in situ hybridization (SISH) and Chromosome 17 copies via chromogenic red in situ hybridization on tumor cells. A minimum of 20 cells representing > 10% of contiguous and homogeneous invasive tumor cells were analyzed. HER2 gene status is classified as Non-amplified (HER2/Chr17 ratio < 2.0) or Amplified (HER2/Chr17 ratio greater than or equal to 2.0). If the resulting HER2/Chr17 ratio falls within 1.8 - 2.2 (Borderline), retesting by FISH is recommended. Reference: Leida GONGORA, Félix MORALES, Vaibhav FERNANDEZ, et al: Recommendations for Human Epidermal Growth Factor Receptor 2 Testing in Breast Cancer: [place] Society of Clinical Oncology / College [employer] [place] [employer] Clinical Practice Guideline Update. J Clin Oncol 31:2080-5608, 2013. AM:jericho 08/29/2023
--- NOTE | 2023-08-15 09:05 | BRBX_PTH ---
PATHOLOGY RESULTS PATIENT: FREDDIE STARK LOC: SIL U#:[id number] AGE/SX: 78/F ROOM: RE08/15/[address]: Dr. Timothy Garcia MD : 1945 BED: DIS: 08/15/2023 SPEC #: [id number] RECD: 08/15/23 12:02 STATUS: MAR OMAR #: [id number] JEAN MARIE: 08/15/23 09:[address]: Timothy Garcia DEPT: SURGICAL PATHOLOGY RECD BY: Farzaneh Best ENTERED: 08/15/23 12:02 SP TYPE: BREAST BX OTHR DR: Dr. 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 Microcalcifications. See comment. AM:jericho 08/16/2023 COMMENT Immunohistochemistry ([id number]) supports the above diagnosis. A basal-like morphology is noted. Case has been reviewed in consultation with Dr. Silvestre who concurs with the above diagnosis. IDC:CODY MICROSCOPIC DESCRIPTION Slides are reviewed. GROSS DESCRIPTION Received in fixative is one container labeled with the patient's name and designated left breast. The specimen consists of multiple elongated fragments of phipps-yellow fibroadipose tissue that in aggregate measure 1.0 x 0.3 x 0.1 cm. The entire specimen is submitted in one cassette. / SJ:jericho 08/15/2023 TC:0 Ischemic Time: 1 minute Fixation Time: 10.5 hours CPT: 66569
== END | disposition home or self-care (01) ==
LOC: LABSPEC 11:04
PROVIDERS: PCP Internal Medicine; Referring Provider Surgery; Visit Provider Surgery
DX: N63.20 Unspecified lump in the left breast, unspecified quadrant (principal)
CPT/HCPCS: 81002; 88305; 88341; 88342; 88368

== ENCOUNTER 2023-08-28 16:43 | Inpatient (IN) | payer MEDICARE, OTHER, SELFPAY ==
--- NOTE | 2023-08-28 09:36 | PCM.HP.BLA ---
History and Physical Date of Admission: 08/28/23 Chief Complaint: discuss biopsy results Allergies No Known Allergies Allergy (Verified 08/18/23 12:37) Medications cholecalciferol (vitamin D3) 125 mcg (5,000 unit) capsule 5,000 unit PO DAILY 04/25/19 [History Confirmed 08/18/23] losartan 100 mg tablet PO #90 tabs 04/25/19 [History Confirmed 08/18/23] multivitamin,wv-idwu-rkzfmwmq (Complete Multivitamin tablet) 1 tab PO DAILY 04/25/19 [History Confirmed 08/18/23] omega-3 fatty acids-fish oil 360 mg-1,200 mg capsule (Fish Oil) 1 cap PO DAILY 08/15/23 [History Confirmed 08/18/23] FOR[facility]LY [facility] Medical History Abnormal mammogram of left breast Hemorrhoid HTN (hypertension) Surgical History History of colonoscopy History of lumpectomy of right breast Family History Brother Diabetes Colon cancerSister Breast cancer Cancer uterineSister Breast cancerMother CVA (cerebral vascular accident)Father Heart disease Social History Smoking Status: Never smoker HPI HPI HPI: 78-year-old female returns in follow-up of a ultrasound-guided core biopsy left breast that I assisted her with on August 15, 2023. Her most recent mammogram had demonstrated a significant alteration. The extent of her microcalcifications suggest a likely more diffuse process at least of the DCIS as noted below. She has a more focal abnormality that is consistent with her invasive ductal carcinoma. The patient describes that she has a brother who has metastatic prostate cancer. He apparently did not like the local recommendations and went to [place] for 3 weeks of treatment. Apparently his PSA has diminished. She did want my opinion about that as an option. Left breast mass, core biopsy: Invasive ductal carcinoma with the following characteristics: Nuclear grade ? 3/3 Maximal length ? 11 millimeters Other findings ? ductal carcinoma in situ, grade 3 with comedo necrosis. 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: No Is patient in pain?: No Allergies No Known Allergies Allergy (Verified 08/15/23 08:36) Medications cholecalciferol (vitamin D3) 125 mcg (5,000 unit) capsule 5,000 unit PO DAILY 04/25/19 [History Confirmed 08/15/23] losartan 100 mg tablet PO #90 tabs 04/25/19 [History Confirmed 08/15/23] multivitamin,nw-krtb-xrpjcobl (Complete Multivitamin tablet) 1 tab PO DAILY 04/25/19 [History Confirmed 08/15/23] omega-3 fatty acids-fish oil 360 mg-1,200 mg capsule (Fish Oil) 1 cap PO DAILY 08/15/23 [History Confirmed 08/15/23] PFSH Medical History Abnormal mammogram of left breast Hemorrhoid HTN (hypertension) Surgical History History of colonoscopy History of lumpectomy of right breast Family History Brother Diabetes Colon cancerSister Breast cancer Cancer uterineSister Breast cancerMother CVA (cerebral vascular accident)Father Heart disease Social History Smoking Status: Never smoker HPI HPI HPI: 78-year-old female is being referred by Dr. Netta Araujo for surgical consultation regarding an abnormal mammogram and a written copy my surgical consult and recommendations will return to her. I had a previous opportunity to see this patient on April 25, 2019. At that time there was a well-defined left lateral retroareolar nodule. This was also identified on ultrasound. Same day we did an ultrasound-guided core biopsy left breast 3 o'clock position. Pathology demonstrated benign breast tissue with focal dense fibrosis and lobular involution no evidence of malignancy. It is of note that she did follow through with a left unilateral diagnostic mammogram on September 13, 2019 which was felt to be stable BI-RADS Category 2. More recently on August 07, 2023 she had bilateral screening mammography. This demonstrated significant new microcalcifications in the upper outer quadrant of the left breast with several clusters identified and a suspected 1.6 x 1 cm nodule in the upper outer portion of the left breast BI-RADS Category 5. I have personally reviewed these images and this is a dramatic and significant change from her previous imaging. I can identify where we previously performed a remote biopsy and this is in different area. 78-year-old female. G0. She has 2 sisters had breast cancer. She did have a previous hysterectomy and she was on estrogen replacement therapy for 5 years. She has had a very remote excisional right breast biopsy. She has had a previous breast cyst aspiration. She has not had any personal history of breast cancer. August 07, 2023 MAMMOGRAPHY - BILATERAL SCREENING REASON FOR EXAM: Female, 78 years old. Routine annual screening examination. PERTINENT HISTORY: Sisters with breast cancer. History of remote right excisional breast biopsy and left ultrasound-guided breast biopsy. TECHNIQUE: Digital bilateral breast harinder (3D mammographic acquisition) in the CC and MLO projections. 2-D mediolateral oblique (MLO) and craniocaudad (CC) views of both breasts were obtained. CAD: Full Field Digital Mammography with Computer Added Detection was performed. COMPARISON: Comparison is made with prior study dated March 22, 2019. FINDINGS: Breast Composition: The breasts are heterogeneously dense, which may obscure small masses. New microcalcifications are seen in the upper outer quadrant of the left breast. Several clusters are seen. Questionable 1.6 cm x 1 cm nodule in the upper lateral deep portion of the left breast. Biopsy recommended. No other significant abnormalities are identified. BI/SCRN MAMM (CAD)W/HARINDER BILAT IMPRESSION: New clusters of microcalcifications in the upper lateral aspect of the left breast with questionable 1.6 cm x 1 cm nodule as described. Biopsy recommended. ASSESSMENT CATEGORY: BIRADS Category 5: Highly Suggestive of Malignancy - Appropriate Action Should Be Taken. A letter regarding these results will be sent to the patient by the facility within 30 days. Approximately 10% of breast cancers are not detected by mammography. A normal mammogram should not delay biopsy of a clinically suspicious abnormality. [id number] Electronically Signed: Damir Contreras MD at 9:04 EST , ROS General General: No weight change, appetite, fatigue, colon cancer, breast cancer or weakness HEENT HEENT: No difficulty swallowing, eye injury, eye surgery, swollen glands or hoarseness Endo Endocrine: No thyroid disease, diabetes mellitus, thyroid cancer, Hair loss, heat intolerance or cold intolerance Skin Skin: No rash or changing moles Breast Breast: No left breast lump, right breast lump, nipple discharge, breast pain, abnormal mammogram, abnormal US or breast enlargement Musc Musculoskeletal: No back problems, arthritis, rheumatoid arthritis, gout or joint pain Cardio Cardiovascular: Yes high blood pressure; No murmur, pacemaker, heart disease, atrial fibrillation, heart attack, heart stent, palpitations, shortness of breat with exertion or chest pain Psych Psychiatric: No depression, anxiety or hearing voices Resp Respiratory: No shortness of breath, No sleep apnea, No cough, No COPD, No asthma, No emphysema and No wheezing Gastro Gastrointestinal: No abdominal pain, No nausea or vomiting, No diarrhea, No constipation, No blood in stool, No acid reflux, No hemorrhoids, No ulcers, No gallbladder problem and No black,tarry stools Bobby Hematologic: No blood thinners, No blood disorders, No bleeding, No anemia and No blood clots Neuro Neurologic: No system reviewed and no additional complaints, except as documented, No as per HPI, No abnormal gait, No abnormal hearing, No abnormal movements, No abnormal speech, No behavioral changes, No burning sensations, No confusion, No convulsions, No disequilibrium, No dizziness, No localized weakness, No frequent falls, No headache(s), No lack of coordination, No loss of vision, No memory loss, No numbness, No other visual disturbances, No radicular pain, No restless legs, No sensory deficit, No syncope, No tingling, No tremor(s), No weakness and No other Exam Const General: cooperative, healthy appearing, comfortable and no acute distress Nutritional Appearance: overweight HENMT Head: normal to inspection Eyes General: appearance normal, both eyes and all related structures Neck Neck: normal visual inspection Chest Other: Right breast: No focal mass no nipple discharge no axillary or clavicular adenopathy Left breast: Upper outer quadrant left breast approximately 6 cm from the nipple there is a tenderness and a nondescript mass measuring approximately 2 cm in diameter. Diffuse fibrous change of the breast. No distortion. No nipple discharge. I do not detect any axillary adenopathy. Resp Effort & Inspection: normal respiratory effort Auscultation: clear to auscultation bilaterally Cardio Rate: regular rate Rhythm: regular rhythm GI Palpation: soft and no hepatosplenomegaly Musc Cervical Spine: normal cervical lordosis Skin General: no rashes or lesions noted Neuro General: patient alert, patient awake and patient oriented x3 Extrem General: no calf tenderness Psych Appearance: grossly normal Office Procedures Biopsy Provider Documentation Ultrasound-guided needle core biopsy upper outer quadrant left breast 2 o'clock position +6 cm Timeout informed consent was obtained. The patient was taken the procedure room placed in a modified right lateral decubitus position the upper outer quadrant of the left breast was prepped with Betadine. Ultrasound was performed demonstrated a vague irregular density at that position. Under ultrasound guidance 1% lidocaine mixed 50-50 with 0.5% Marcaine was instilled as a local anesthetic. A total of 10 cc was used. A small stab incision was created. A 14-gauge Monopty needle was advanced to prefire depth. Pre and post fire films were obtained. 3 cores were obtained. A marking clip was left in position. Pressure was held for hemostasis. The specimens were immediately transferred to formalin for analysis. She tolerated the procedure well there is no apparent complication. Steri-Strip Telfa OpSite dressing applied. She was given activity wound care instructions. Office follow-up in 3 days scheduled. Timothy Garcia M.D., F.A.C.S. Biopsy Breast Biopsy: [id number] US Guidance Procedure Time Out Time Out Informed consent given: Yes Consent signed: Yes Time out checklist: patient, procedure, site marked/identified, positioning of patient, supplies available, allergies confirmed and team agrees on procedure Time out staff in room: Yes Time out verified: Yes Time out date: 08/15/23 Time out time: 09:05 Assessment and Plan Assessment and Plan (1) Abnormal mammogram of left breast: Status: Acute Plan: 78-year-old female. She has significant new onset of calcifications in the upper outer quadrant of the left breast that extended over quite a distance with an additional suggestion of a mass. And I on my personally done ultrasound at the site of palpable mass and tenderness I felt that identified a mass took images and performed a biopsy under ultrasound guidance. I explained to the patient that if this is abnormal then I will likely would then be recommending definitive surgery. I suggested to her that if breast cancer is not identified then I would pursue a stereotactic needle core biopsy. I felt that under ultrasound guidance I was able to perform the procedure for her today and expedite her care. She has had an opportunity to ask and have questions answered. We will have her return to the office in 3 days time to review her pathology. I appreciate the ongoing opportunity of assisting with her surgical care. Copy: Dr. Netat Garcia M.D., F.A.C.S. ROS General General: No weight change, appetite, fatigue, colon cancer, breast cancer or weakness HEENT HEENT: No difficulty swallowing, eye injury, eye surgery, swollen glands or hoarseness Endo Endocrine: No thyroid disease, diabetes mellitus, thyroid cancer, Hair loss, heat intolerance or cold intolerance Skin Skin: No rash or changing moles Breast Breast: No left breast lump, right breast lump, nipple discharge, breast pain, abnormal mammogram, abnormal US or breast enlargement Musc Musculoskeletal: No back problems, arthritis, rheumatoid arthritis, gout or joint pain Cardio Cardiovascular: Yes high blood pressure; No murmur, pacemaker, heart disease, atrial fibrillation, heart attack, heart stent, palpitations, shortness of breat with exertion or chest pain Psych Psychiatric: No depression, anxiety or hearing voices Resp Respiratory: No shortness of breath, No sleep apnea, No cough, No COPD, No asthma, No emphysema and No wheezing Gastro Gastrointestinal: No abdominal pain, No nausea or vomiting, No diarrhea, No constipation, No blood in stool, No acid reflux, No hemorrhoids, No ulcers, No gallbladder problem and No black,tarry stools Bobby Hematologic: No blood thinners, No blood disorders, No bleeding, No anemia and No blood clots Neuro Neurologic: No system reviewed and no additional complaints, except as documented, No as per HPI, No abnormal gait, No abnormal hearing, No abnormal movements, No abnormal speech, No behavioral changes, No burning sensations, No confusion, No convulsions, No disequilibrium, No dizziness, No localized weakness, No frequent falls, No headache(s), No lack of coordination, No loss of vision, No memory loss, No numbness, No other visual disturbances, No radicular pain, No restless legs, No sensory deficit, No syncope, No tingling, No tremor(s), No weakness and No other Assessment and Plan Assessment and Plan (1) Breast cancer: Status: Acute Qualifiers: Breast location: upper outer quadrant of breast Estrogen receptor status: negative Laterality: left Patient sex: female Qualified Code(s): C50.412 - Malignant neoplasm of upper-outer quadrant of left female breast; Z17.1 - Estrogen receptor negative status [ER-] Plan: I explained to the patient that upon review of her left mammogram that it is a dramatically different picture from her previous mammogram of March 2019. There is an extensive amount of streaking clustered microcalcifications in addition to the mass. I have very significant concerns that she has extensive DCIS associated with those microcalcifications in addition to the focal mass that identifies invasive ductal carcinoma. Moreover I have made her aware that she is ER and SD negative. We could consider obtaining an MRI for further definition regarding potential spread but of course that would not assist us with the degree of DCIS. I do not personally believe that a lumpectomy would be a reasonable option due to the degree of involvement. I have proposed for her left total mastectomy with left axillary nuclear tracer and blue dye sentinel lymph node biopsy. I described the technique, benefit, risk, alternatives. She is aware that drains will be placed. She has had an opportunity to ask and have questions answered. She will consider her options and contact us. I will ask that she have a fast pass through our medical oncology department and I am additionally recommending a medical oncology consultation which we will expedite if she agrees. We will try to schedule her surgical procedure but allow her more time to digest the diagnosis and inform us as to how she would like to proceed. Copy: Dr. Netta Garcia M.D., F.A.C.S. The patient was seen in consultation by Dr. Devi Hall. She presents today to proceed with a nuclear tracer blue dye left axillary sentinel lymph node biopsy with possible conversion to axillary lymph node dissection if indicated as well as a left total mastectomy. She is aware of the technique, benefit, risk, alternatives. She has had an opportunity to ask and have questions answered. We will proceed as noted. Timothy Garcia M.D., F.A.C.S.
--- NOTE | 2023-08-28 09:37 | DCINST_ITS ---
Discharge Instructions Procedure Breast Surgery Diet Discharge Diet: No restrictions Activity Discharge Activity: May Not Drive (for 2-3 days or while taking narcotic pain meds.) May shower in (days): 1 Lifting Restrictions: 10 pounds for 1 week. Additional Activity Instructions:: Empty measure and record the drain output as instructed. Please have this documentation with you when you return to the office. Dressing / Incision Call your doctor if your incision/area has: Continuous Slow Oozing and Sudden Increased Bleeding Call your doctor if you observe: Fever of 101 or Higher Suture Line Care: Avoid Pulling/Pushing and Avoid Pinching/Bending Remove Dressing in: 1 day Additional Dressing/Incision Instructions:: Remove bulky dressing tomorrow. May leave any opsite dressing for 3-4 days. Keep dressing in place until your fo llow-up appointment. Follow Up Care Please Follow Up With: Timothy Garcia MD When: Please call [phone] for office follow-up on Monday, September 01, 2023. Please contact the office that morning with the report of your drain output. Test Results: Test results from this visit will be discussed in further detail at your follow- up appointment, if applicable. Discharge Plan Admission Admit Date/Time: 08/28/23 16:43 Attending Provider: Timothy Garcia Primary Care Provider: Netta Araujo Discharge Orders/Prescriptions Prescriptions: No Action losartan 100 mg tablet 100 mg PO DAILY Qty: 90 cholecalciferol (vitamin D3) 5,000 unit capsule 5,000 unit PO DAILY omega-3 fatty acids-fish oil [Fish Oil] 360-1,200 mg capsule 1 cap PO DAILY turmeric 400 mg capsule 400 mg PO DAILY magnesium 200 mg tablet 200 mg PO DAILY zinc 50 mg tablet 50 mg PO DAILY Referrals / Follow Up: Netta Araujo MD [Primary Care Provider] -
--- NOTE | 2023-08-28 09:47 | NM_ITS ---
PROCEDURE: NUCLEAR MEDICINE Injection Mcbrides Node - LEFT breast(s). REASON FOR EXAM: Female, 78 years old. Left breast cancer. TECHNIQUE: Mcbrides node localization using radionuclide methods of the LEFT breast(s) was performed following subcutaneous administration of 1.2 mCi of of sulfur colloid Tc-99m. COMPARISON STUDIES : NM - None. CR - Not available for review at this time. CT - Not available for review at this time. MR - Not available for review at this time. US - Not available for review at this time. FINDINGS: 1.2 mCi of technetium labeled sulfur colloid was injected subcutaneously in the left periareolar region. NM/Lymph Node Injection Only IMPRESSION: 1.2 mCi of technetium labeled sulfur colloid was injected subcutaneously in the left periareolar region. Electronically Signed: Damir Contreras MD at 12:50 EST ,
--- NOTE | 2023-08-28 14:49 | OP.PCM_ITS ---
Report of Operation Date of Procedure: 08/28/23 Pre-Operative Diagnosis: Upper outer quadrant left breast invasive ductal carci noma with extensive ductal carcinoma in situ Post-Operative Diagnosis: Same Surgery/Procedure Performed:: Blue dye nuclear tracer left axillary sentinel lymph node biopsy with left total mastectomy Description of Surgical Findings:: Timeout informed consent was obtained. 78-year-old female was taken to the operating room placed upon the table underwent general anesthesia the left arm was carefully wrapped with soft roll and placed right angles the table she had previously had nuclear tracer injected in the left breast per radiology the left breast was prepped with alcohol 2-1/2 cc of isosulfan blue dye was injected and massage was performed for 3 minutes. Then the left breast was sterilely prepped and draped. A transverse elliptical total mastectomy incision was created. Superior flaps were created first. Electrocautery was used to create the flaps and obtain hemostasis. Where needed additional hemostasis was obtained with interrupted 3-0 Vicryl suture ligatures or hemoclips. Dissection was performed down to the axilla where believe diet lymphatic tracking was readily identified. Traced this to 1 lymph node that had blue dye and nuclear tracer carefully bluntly and sharply dissected that free using 3-0 Vicryl ligatures and hemoclips for hemostasis. I then further inspected the axilla by palpation and visualization and nuclear neoprobe without additional lymph nodes remaining of concern. The inferior flap was then created in a similar technique. The left breast was taken off the pectoralis major muscle with electrocautery. Great care was taken toward the axillary area to preserve all deep nerves as well as the intercostal radicular changes noted to the upper arm. The dissection was completed and the chest wall was irrigated with sterile water 2 stab incisions were made inferior to the wound and 215 round MUNIRA drains were exited. There was secured to skin with 3-0 nylon. 1 was placed to the axilla and the other to the chest wall. The skin edges were then meticulously approximated with multiple interrupted subdermal 3-0 Vicryl sutures. Steri-Strips Telfa bulky dry dressings applied. This was followed by bias ply wrap. Sponge and instrument and needle counts were reported to certainly be correct. Frozen section on the sentinel lymph node was 1 sentinel node and it was negative. Specimen sentinel lymph node and left total mastectomy. Drains 15 round MUNIRA drains x 2. Blood loss 50 cc. The patient was taken to the recovery room in satisfied condition without apparent complication. Timothy Garcia M.D., F.A.C.S. Synoptic Portion: Element Response Options Operation performed with curative intent. Yes Tracer(s) used to identify sentinel nodes in the upfront surgery (non- neoadjuvant) setting (select all that apply). Blue dye and radioactive tracer Tracer(s) used to identify sentinel nodes in the neoadjuvant setting (select all that apply). Not applicable All nodes (colored or non-colored) present at the end of a dye-filled lymphatic channel were removed. Yes All significantly radioactive nodes were removed. Yes All palpably suspicious nodes were removed. Yes Biopsy-proven positive nodes marked with clips prior to chemotherapy were identified and removed. Not applicable Surgeon: Timothy Garcia Type of Anesthesia: General Anesthesiologist: Tutu Jorge
[2023-08-28 17:46] VITALS: BP 135/58; PULSE 63; RESP 16; TEMP 36.3; O2SAT 95; BMI 27.6
[2023-08-28 17:52] VITALS: BP 135/58; PULSE 63; RESP 16; TEMP 36.3; O2SAT 95
[2023-08-28 19:56] VITALS: BP 161/69; PULSE 57; RESP 18; TEMP 36.6; O2SAT 98
[2023-08-28] MEDS: HYDROcodone Bitartrate/Apap 5/325 Tablet PO (20:00)
[2023-08-28 21:59] VITALS: BP 113/60; PULSE 64; RESP 18; TEMP 36.6; O2SAT 99
[2023-08-29] MEDS: Acetaminophen 325 MG Tablet 650 MG PO ×2 (01:09→12:09)
[2023-08-29 04:25] VITALS: BP 117/55; PULSE 63; RESP 18; TEMP 36.4; O2SAT 96
--- NOTE | 2023-08-29 09:23 | PHA.DC.MR.R ---
Pharmacy [place] Med Reconciliation Pharmacy Service has performed discharge medication reconciliation for this patient. The patient's discharge medication list was reviewed for discrepancies and discrepancies were resolved. Medications at Discharge Home Medications cholecalciferol (vitamin D3) 125 mcg (5,000 unit) capsule 5,000 unit PO DAILY SUPPLEMENT 04/25/19 losartan 100 mg tablet 100 mg PO DAILY BP #90 tabs 04/25/19 omega-3 fatty acids-fish oil 360 mg-1,200 mg capsule (Fish Oil) 1 cap PO DAILY SUPPLEMENT 08/15/23 magnesium 200 mg tablet 200 mg PO DAILY SUPPLEMENT 08/22/23 turmeric 400 mg capsule 400 mg PO DAILY SUPPLEMENT 08/22/23 zinc 50 mg tablet 50 mg PO DAILY SUPPLEMENT 08/22/23
[2023-08-29] MEDS: Losartan Potassium 100 MG Tablet PO (09:29)
[2023-08-29] MEDS: Magnesium Chloride 64 MG Delay Rel.Tablet 128 MG PO (09:29)
[2023-08-29 09:30] VITALS: BP 112/48; PULSE 70; RESP 18; TEMP 36.7; O2SAT 98
--- NOTE | 2023-08-29 09:30 | CASEMGMT ---
CALVIN JORGE Assessment: Face to Face with pt for initial transition planning/care coordination assessment. CALVIN JORGE introduced self and role at [facility], pt voices understanding and consents to assessment. Pt is A&O x4 and answers all questions appropriately at this time. Pt sitting up in bed in no distress. Care providers, pharmacy, and demographics verified/updated. Admitting Dx: breast cancer PCP:Gayle Specialists:JÚNIOR Garcia Preferred Pharmacy: [facility] Insurance: [facility], MMO Prescription Benefit: yes LNOK: Nalini Benitez, sister; Sriram Wilson, brother Living Arrangements: Pt lives alone in the top of a duplex with 4 steps to enter with a rail. Pt reports she is going to stay with her brother and sister in law for 2 wks post surgery. They live in a two story home with 5 steps to enter with a rail. 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 Pt denies concerns at home. Transportation: Pt drives self and denies concerns with transportation. Pt family will transport pt until she can drive again. DME:cane HHC/SNF: Denies hx of Pt states no concerns with going home at time of dc. Discussed emptying drains, logging amount and site care, nurse in room and reports will review. Pt states no further concerns/needs. Pt states her sister from [place] is coming who also went through this same surgery and will be able to assist. Pt was using a walker in hospital, denies need for this at home. Pt states she will use her cane if needed. CM to follow. Advised pt to ask CM if any further question/concerns/needs arise, voices understanding. Pt Goal: Home to brother's home Plan: Home with brother
--- NOTE | 2023-08-29 09:31 | PCM.PN.SRG ---
Subjective Subjective Patient was evaluated resting comfortably in bed. She denies any pain/discomfort. She denies any further nausea, vomiting. She is tolerating a regular diet. Objective Data Objective Data Vital Signs: Vital Signs Temp Pulse Resp BP Pulse Ox O2 Del Method 97.6 F L 63 18 117/55 L 96 Room Air 08/29/23 04:25 08/29/23 04:25 08/29/23 04:25 08/29/23 04:25 08/29/23 04:25 08/29/23 04:25 Oxygen Delivery Method Room Air Weight: 156 lb Body Mass Index (BMI) 27.6 Intake & Output: Intake and Output for Last 24 Hours 08/27/23 08/28/23 08/29/23 23:59 23:59 23:59 Intake Total Output Total 115 / 115 Balance -20 / -20 -115 / -115 Radiography Diagnostic Testing: Radiology Impression [place] Node 08/28/23 09:47 IMPRESSION: 1.2 mCi of technetium labeled sulfur colloid was injected subcutaneously in the left periareolar region. Electronically Signed: Damir Contreras MD at 12:50 EST , Physical Exam Chest Chest Narrative: Left chest- incision c/d/i. No erythema or infection noted. MUNIRA drains are intact Assessment & Plan Assessment/Plan (1) Breast cancer: QUALIFIERS: Breast location: upper outer quadrant of breast Estrogen receptor status: negative Patient sex: female Laterality: left Qualified Code(s): C50.412 - Malignant neoplasm of upper-outer quadrant of left female breast; Z17.1 - Estrogen receptor negative status [ER-] PLAN: Ready for discharge Reviewed discharge instructions and answered any questions. Patient is to call our office on Monday with drain output numbers to determine if patient will need to come into the office to have her drains removed or follow-up on Monday for drain removal. Charges/Coding Visit Charges Inpatient E&M: 65091 Subs Hosp L1 (no charge; post-op)
[2023-08-29 12:00] VITALS: BP 122/60; PULSE 61; RESP 18; TEMP 36.6; O2SAT 95
== END 2023-08-29 12:40 | disposition home or self-care (01) | DRG 581 ==
LOC: NM 16:51 → MS3 08-29 02:10
PROVIDERS: Admitting Provider Surgery; PCP Internal Medicine; Referring Provider Surgery; Visit Provider Surgery
DX: C50.412 Malignant neoplasm of upper-outer quadrant of left female breast (principal); I10 Essential (primary) hypertension; Z80.3 Family history of malignant neoplasm of breast; Z71.7 Human immunodeficiency virus [HIV] counseling
CPT/HCPCS: 38792; A9541; J2405

== ENCOUNTER → 2024-09-17 | Outpatient (CLI) | payer MEDICARE, OTHER, SELFPAY ==
--- NOTE | 2024-09-17 08:00 | BI_ITS ---
PROCEDURE: SCREEN MAMM (CAD) W/HARINDER UNI R REASON FOR EXAM: F, Age 79 y/o , ANNUAL SCREENING. Personal history of left breast cancer status post left mastectomy in 2023. Family history of breast cancer in 2 sisters. TECHNIQUE: Unilateral right screening digital breast tomosynthesis with 2D and 3D images. Computer aided detection. COMPARISON: 08/07/2023, 03/22/2019 FINDINGS: There are scattered areas of fibroglandular density. No suspicious masses, areas of developing architectural distortion, or suspicious calcifications. BI/SCREEN MAMM (CAD) W/HARINDER UNI R IMPRESSION: There is no mammographic evidence of malignancy. BI-RADS 1: NEGATIVE. RECOMMEND ANNUAL MAMMOGRAPHIC SCREENING. Follow-up code: Routine Follow-up The patient will be notified of the results by letter. Reading Location: [id number]
== END | disposition home or self-care (01) ==
LOC: OPBI 07:55
PROVIDERS: PCP Internal Medicine; Referring Provider Internal Medicine Hematology & Oncology; Visit Provider Internal Medicine Hematology & Oncology
DX: Z12.31 Encounter for screening mammogram for malignant neoplasm of breast (principal); Z85.3 Personal history of malignant neoplasm of breast; Z90.12 Acquired absence of left breast and nipple
CPT/HCPCS: 77063; 77067

== ENCOUNTER → 2025-06-13 | Outpatient (CLI) | payer MEDICARE, OTHER, SELFPAY ==
[2025-06-13 10:15] LABS: Color, Urine Yellow (Yellow); Glucose, Dipstick Normal (Normal); Ketone-Dipstick Negative (Negative); Leukocyte Esterase-Dipstick 500 /ul (Negative); Nitrite-Dipstick Negative (Negative); Occult Blood-Urine 10 /ul (Negative); Protein-Dipstick Negative (Negative); Specific Gravity, Urine 1.020 (1.002-1.030); Urine Bilirubin Dipstick Negative (Negative)
[2025-06-13 10:42] LABS: Hematocrit 37.7 % (37-47); Hemoglobin 11.7 g/dL (12.0-15.0); Immature Granulocytes Count 0.010 X10^3/uL (0.0-0.0); Mean Corp Hgb Conc 31.0 g/dL (32-36); Mean Corpuscular Volume 88.9 fL (81-99); Mean Platelet Vol. 11.4 fl (6.2-12.0); NRBC Flagged by Analyzer 0 % (0-5); Platelet Count 234 K/mm3 (150-450); RBC Distribution Width CV 14.1 % (11.6-14.6); RBC Distribution Width SD 45.5 fl (35.1-43.9); Red Blood Count 4.24 M/mm3 (4.2-5.4); White Blood Count 4.7 K/mm3 (4.4-11.0)
[2025-06-13 10:46] LABS: Creatinine, Urine (random) 99.40 mg/dL (28.00-217.00); Microalbumin,Random Urine < 12.0 mg/L (<20 mg/L)
[2025-06-13 11:05] LABS: AST(SGOT) 29 U/L (<=31); Alanine Aminotransfer ALT/SGPT 20 U/L (<=34); Albumin, Serum 4.1 g/dL (3.4-4.8); Alkaline Phosphatase 85 U/L (35-104); Anion Gap 10 (5-15); BUN 14 mg/dL (4-19); BUN/Creat Ratio 24.1 RATIO (10-20); Calcium,Total 9.6 mg/dL (7.6-11.0); Carbon Dioxide 26.8 mmol/L (21.0-32.0); Chloride 103 mmol/L (98-108); Cholesterol 242 mg/dL (<=200); Globulin 2.7 g/dL (2.2-4.2); Glucose 84 mg/dL (70-99); Low Density Lipoprotein Calc. 149 mg/dL; Potassium 3.8 mmol/L (3.3-5.1); Triglycerides 41 mg/dL; Very Low Density Lipoprotein 8 mg/dL (5-40); Vitamin D,25 Hydroxy 68.5 ng/mL (30-100); cholesterol:hdl ratio screen 2.79
== END | disposition home or self-care (01) ==
LOC: CIMLAB 07:59
PROVIDERS: PCP Internal Medicine; Referring Provider Internal Medicine; Visit Provider Internal Medicine
DX: Z13.29 Encounter for screening for other suspected endocrine disorder (principal); I10 Essential (primary) hypertension; E78.00 Pure hypercholesterolemia, unspecified; Z78.0 Asymptomatic menopausal state; E55.9 Vitamin D deficiency, unspecified
CPT/HCPCS: 36415; 80053; 80061; 81002; 82043; 82306; 82570; 84443; 85025